=== PATIENT | female | born 1935 | race Caucasian/White ===

== ENCOUNTER 2020-09-18 17:09 | Inpatient (IN) | payer MEDICARE, SELFPAY ==
--- NOTE | ~2020-09-18 | CT_ITS ---
EXAMINATION: CT cervical spine wo con DATE: 09/18/2020 17:38 INDICATION: Fall. Neck pain. TECHNIQUE: Computed tomography (CT) of the cervical spine was performed without intravenous contrast. Automated exposure control and iterative reconstruction technique were employed. Exam dose: 84.72 m Gy-cm total exam DLP. COMPARISON: None FINDINGS: There is diffuse osteopenia. C1 and C2 are normally aligned and the odontoid process is intact. There is moderately severe degenerative disc disease at C4-5 and C5-6 and moderate degenerative disc disease at C6-7. No fracture or dislocation or locked facet. There is degenerative change at the apophyseal joints. Un covertebral joint spurring is noted throughout the cervical spine.. IMPRESSION: Extensive degenerative changes; no fracture or dislocation Reviewed, dictated and finalized at [facility]. Reviewed, dictated and finalized at location A.
--- NOTE | ~2020-09-18 | XR_ITS ---
XR chest 1V portable DATE: 09/18/2020 19:55 INDICATION: Fall. Hip fracture. TECHNIQUE: Portable supine AP chest on 09/18/2020 at 1955 hours COMPARISON: None FINDINGS: Cardiomegaly. Aortic calcification. No pulmonary infiltrate or consolidation or pleural effusion. Mild bilateral apical capping. Diffuse osteopenia. IMPRESSION: Cardiomegaly and aortic atherosclerosis Diffuse osteopenia Reviewed, dictated and finalized at location A.
--- NOTE | ~2020-09-18 | XR_ITS ---
. EXAMINATION: XR surgery orthopedic DATE: 09/19/2020 08:56 INDICATION: ORIF right hip fracture. TECHNIQUE: 4 fluoroscopic images of the right hip were obtained during procedure performed by Dr. Tan varela. Radiologist was not present for the imaging or procedure. The amount of fluoroscopy time used d uring this procedure was 2.3 minutes. COMPARISON: 09/18/2020 FINDINGS: Interval open reduction and internal fixation of the intratrochanteric fracture of the proximal right femur with antegrade intramedullary crystal, distal interlocking screw and a pair of the neck dynamic co mpression screws. Alignment post fixation appears near-anatomic. Mild nonuniform joint space narrowin g at the superolateral aspect of the right hip joint space. IMPRESSION: 1. Near-anatomic alignment post open reduction and internal fixation of a intertrochanteric fracture of the proximal right femur. Reviewed, dictated and finalized at location A. IMPRESSION: 1. Near-anatomic alignment post open reduction and internal fixation of a inter trochanteric fracture of the proximal right femur.
--- NOTE | ~2020-09-18 | XR_ITS ---
XR hip RT 2V w AP pelvis DATE: 09/18/2020 17:50 INDICATION: Fall. Right hip pain, rotation TECHNIQUE: AP pelvis. AP and crosstable lateral views of right hip COMPARISON: None FINDINGS: There is a right intertrochanteric hip fracture with varus angulation. Diffuse osteopenia. The pubic symphysis and sacroiliac joints are intact. No pelvic fracture or bone destruction is evide nt. IMPRESSION: Right intertrochanteric hip fracture Diffuse osteopenia Reviewed, dictated and finalized at location A.
--- NOTE | ~2020-09-18 | CT_ITS ---
EXAMINATION: CT brain wo con DATE: 09/18/2020 17:38 INDICATION: Fall. Confusion. Neck pain. TECHNIQUE: Computed tomography (CT) of the head was performed without intravenous contrast. The mA wa s adjusted according to patient size. Iterative reconstruction technique was employed. Exam dose: 60 5.33 mGy-cm total exam DLP. COMPARISON: None FINDINGS: The examination is limited by motion artifact. No intracranial mass lesion or hemorrhage or cerebrovascular accident is evident. There is cerebral atherosclerosis. There is nonspecific diminished attenuation cerebral white matter, likely due to chronic small vessel ischemic changes. Central and cortical cerebral and cerebellar atrophy. No intracranial mass lesion or hemorrhage or cerebrovascular accident is evident. No midline shift or mass effect effect. No subdural or epidural hematoma. No fracture or bone destruction of the cranial vault. There is a small mucus retention cyst or polyp of the posterior left maxillary sinus. The mastoid air cells and included paranasal sinuses are otherwise well-developed and aerated. IMPRESSION: Cerebral atherosclerosis and chronic small vessel ischemic changes of the cerebral white matter Central and cortical cerebral and cerebellar atrophy No acute intracranial finding or skull fracture Reviewed, dictated and finalized at [facility]. Reviewed, dictated and finalized at location A.
[2020-09-18 17:02] VITALS: BP 164/88; PULSE 60; RESP 14; TEMP 36.9; O2SAT 98
--- NOTE | 2020-09-18 17:17 | ED.GENADULT ---
HPI - General Adult General Chief complaint: Fall <JACKIE Lu Last Filed: 09/18/20 19:26> Stated complaint: FALL-R HIP PAIN <JACKIE Lu Last Filed: 09/18/20 19:26> Time Seen by Provider: 09/18/20 17:12 <JACKIE Lu Last Filed: 09/18/20 19:26> Source: patient, EMS and RN notes reviewed <JACKIE Lu Last Filed: 09/18/20 19:26> Mode of arrival: EMS <JACKIE Lu Last Filed: 09/18/20 19:26> Limitations: dementia <JACKIE Lu Last Filed: 09/18/20 19:26> History of Present Illness HPI narrative: Patient is an 85-year-old female who [facility] for [facility] of hip injury secondary to fall patient has been in the [facility] for 3 days is a DNR comfort measures only presents with right hip pain deformity patient is alert and oriented to self patient notes hip pain denies other complaints or injuries at this time does not appear distressed or uncomfortable. Patient had had recent hospitalization at outside hospital for hypoglycemia was also having arrhythmia and was started on metoprolol which is a new medication for her. Patient's son is present <JACKIE Lu Last Filed: 09/18/20 19:26> Related Data Home medications: Home Medications Medication Instructions Recorded Confirmed calcium carbonate-vitamin D3 1 tablet PO DAILY 09/18/20 09/18/20 [Calcium 500 + D] metoprolol succinate 25 mg PO DAILY 09/18/20 09/18/20 multivitamin with minerals 1 tablet PO DAILY 09/18/20 09/18/20 [Multiple Vitamin-Minerals] timolol maleate 1 drp EACH EYE Q12H 09/18/20 09/18/20 <JACKIE Lu Last Filed: 09/18/20 19:26> Allergies/adverse reactions: Allergies Allergy/AdvReac Type Severity Reaction Status Date / Time No Known Allergies Allergy Verified 09/18/20 20:43 <JACKIE Lu Last Filed: 09/18/20 19:26> Review of Systems Review of Systems: ROS unobtainable: Yes unobtainable due to medical condition <Gordy Regan PA-C - Last Filed: 09/18/20 19:26> [facility] Past Medical History Medical History: Medical History Breast CA Congestive heart failure Dementia Glaucoma Hypertension <Gordy Regan PA-C - Last Filed: 09/18/20 19:26> Surgical History Surgical History: Surgical History Surgical history unknown <Gordy Regan PA-C - Last Filed: 09/18/20 19:26> Family History Family History: Family History Son Heart disease 2 sons with early-onset coronary artery disease in their early 50s. Mother Hypertension <Gordy Regan PA-C - Last Filed: 09/18/20 19:26> Social History Social History: Social History Social History: The patient is originally from [place], [place] but is now at [place] as per [facility]. 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 No alcohol, tobacco, or drug use. Her healthcare power of insurance attorney is Sarath Mathew. She is listed as a do not resuscitate. Smoking status: Never smoker Alcohol intake: never Substance use: never Spiritual care concerns: No <JACKIE Lu Last Filed: 09/18/20 19:26> Exam Narrative: Exam Narrative: GENERAL: Well-appearing, well-nourished, and in no acute distress. HEAD: Normocephalic, atraumatic. EYES: PERRLA and EOMI. ENT: Nares clear, no rhinorrhea or epistaxis. Mucous membranes moist. NECK: Supple. No adenopathy or masses. CHEST: Clear to auscultation. No respiratory distress. No wheezes rales or rhonchi HEART: Regular rate and rhythm. No murmur heard. Normal peripheral pulses. ABDOMEN: Soft, nontender, nondistended EXTREMITIES: Normal range of motion. No edema. SKIN: Warm, dry, no rash. NEUR
[2020-09-18 18:26] LABS: Hematocrit 35.6 % (37.0-47.0); Hemoglobin 11.5 g/dL (12.0-15.0); Immature Platelet Fraction Pct 9.2 % (0.9-11.2); Mean Corpuscular HGB Conc 32.3 g/dl (32-36); Red Blood Count 3.49 M/mm3 (4.2-5.4); White Blood Count 11.7 K/mm3 (4.5-10.0)
[2020-09-18 18:29] LABS: Add Urine Microscopic? YES; Appearance Urine Cloudy (Clear); Bilirubin Urine Negative (Negative); Blood Urine Negative (Negative); Color Urine Yellow (Yellow); Glucose Urine UA Negative (Negative); Ketones Urine Negative (Negative); Leukocyte Esterase Ur Negative LEU/UL (Negative); Mucus Urine Rare /lpf; Nitrate Urine Negative (Negative); Protein Urine 1+ mg/dL (Negative); Squamous Epithelial Cell Urine Rare /hpf (Few); Urobilinogen Urine Negative mg/dL (<2.0); WBC Urine 0-3 /hpf
[2020-09-18 18:37] LABS: Anion Gap 1 mmol/L (8-16); Blood Urea Nitrogen 20 mg/dL (7-17); Carbon Dioxide 33 mmol/L (22-30); Chloride 106 mmol/L (98-107); Estimated CRCL calculation 43 ml/min; Estimated Glomerular Filt Rate > 60; Glucose 118 mg/dL (65-105); Potassium 4.5 mmol/L (3.4-5.0); Sodium 140 mmol/L (137-145)
[2020-09-18 18:52] LABS: Band Neutrophils Percent 2 % (0-6); Lymphocytes Absolute Manual 2.45 K/mm3 (1.1-4.5); Monocytes Absolute Manual 0.46 K/mm3 (0.1-0.90); Monocytes Percent Manual 4 % (3-9); Neutrophils Absolute Manual 8.77 K/mm3 (1.7-7.2); Neutrophils Percent Manual 73 % (46-73); Platelet Estimate Adequate (Adequate); Total Cells Counted 100
[2020-09-18] MEDS: SODIUM CHLORIDE 0.9% IV 500 ML 999 ML IV CONT (19:02)
[2020-09-18] MEDS: MORPHINE SULFATE (*CRX) 2 MG/ML INJ IV PUSH (19:02)
--- NOTE | 2020-09-18 19:20 | PC.NURSE ---
assuming care of pt at this time, received report from [facility]
--- NOTE | 2020-09-18 19:24 | PM.CNOR ---
Assessment and Plan Additional Plan This is a an 85-year-old female who presented to the emergency room a little while ago with a displaced right intertrochanteric hip fracture. She recently took residence at [place] period 1 week ago she was at home but she was getting weaker and frail and her son moved her locally to be closer to him and placed her in [place] where she could be cared for. The last 2 days she has seemed very unsteady and normally she is supposed to use a walker but is stubborn and does have moderate dementia and is forgetful and she got up without her walker today and fell sustaining her right hip fracture. She had CT of the neck and brain as well. She has recently been started on metoprolol for intermittent tachycardia ranging from 80-130. Her laboratory studies show anemia hemoglobin 11.5 mild elevation of white count 11.7 increased MCV 102. Basic metabolic profile showed a creatinine of 0.6 BUN of 20. Urinalysis 0-3 white blood cells per high-power field. On exam she is alert. She communicates very clearly but she has significant memory loss. When I asked her how old she was she ponder this for awhile and finally stated that she was 52. She hurts but can't state where her pain is even when her son ask served but if she is asked if her right hip hurts she says yes. There is no swelling or ecchymosis in the right lower extremity. She does wiggle her toes on command. She had a 1+ posterior tibial artery pulse palpable. I could not feel dorsalis pedis pulse. There was no significant lower extremity edema the calf was nontender. She was able to lift her head off the gurney so I could put a pillow under and denied pain with motion of her head and neck. Impression this patient has a displaced right intertrochanteric hip fracture. She has been ambulatory. I have discussed with her my recommendation to proceed with surgical repair of her hip fracture and she was in agreement. I discussed at length the risks of surgery with her son and we talked about the risk of mortality in someone her age that has dementia that has been going through a significant decline and the risk of mortality in the next 30 days in the next 90 days is significant. However he is hopeful that her condition will improve with further medical treatment which is certainly possible as she was doing much better just 1 week ago. He would like to give her the best chance of having optimal function and optimal quality of life in her remaining years. I have discussed the option of nonsurgical treatment which has a higher short-term and long-term mortality compared with surgical treatment of this fracture and would not generally be appropriate for someone who is ambulatory and interacts with her loved ones has no terminal illness. We will plan to use a trochanteric nail device to repair the fracture. She has no known drug allergies. She does have anemia and she is at some risk for needing transfusion postoperatively. I spoke with Rosie the nurse practitioner at length and Leidysaad is going to request some of her records and we will possibly discuss the case with Dr. reyna to see if any additional cardiac workup is necessary before proceeding. History of Present Illness HPI Consult date: 09/18/20 Chief complaint: FALL-R HIP PAIN PMFSH Past Medical History Medical History (Updated 09/18/20 @ 19:26 by Gordy Regan PA-C) Dementia Social History Social History (Updated 09/18/20 @ 17:18 by Gordy Regan PA-C) Smoking status: Never smoker Living arrangements: prison Gender identity (if verbalized by the patient): Female Meds Home Medications and Allergies Home Medications Medication Instructions Recorded Confirmed Type calcium carbonate-vitamin D3 1 tablet PO DAILY 09/18/20 History [Calcium 500 With D] metoprolol succinate 25 mg PO DAILY 09/18/20 History multivitamin with minerals 1 tablet PO DAILY 09/18/20 History [Mu
--- NOTE | 2020-09-18 19:30 | PM.IMHP ---
H&P: HPI History of Present Illness Date/Time: 09/18/20 19:30 Chief Complaint: Hip pain after fall. Narrative: This is an 85-year-old female with dementia and hypertension who presented to the emergency department earlier today via EMS from [place] for evaluation of hip pain after an unwitnessed fall. Given her dementia she is not able to provide much in the way of history and as such a majority of the following is obtained via a review of her electronic medical records and discussions with her son. Her dementia has rapidly progressed and in fact she moved from her home in [place], [place] to [place] just 3 days ago. Not long prior to arrival she was found on the floor and was complaining of right hip pain. Imaging in the emergency department demonstrated an intratrochanteric fracture and she is being admitted in this setting. She is very confused and does not remember how she fell. At the time my evaluation she has no complaints but seems quite anxious in this new setting. Of note, the patient was hospitalized at [facility] in [place], [place] several weeks ago with weakness and lower extremity edema. According to the son, she has ?an enlarged heart? and they started her on metoprolol for a possible arrhythmia however he is not certain if she had AFib or not. It sounds as though she was diuresed in the hospital and had improvement in her symptoms and edema. Review of Systems Review of Systems: Narrative: A complete review of systems was attempted but is extremely limited given her severe dementia. At this time she denies headache, dizziness, fever, chills, sweats, chest pain, pleuritic pain, shortness of breath, orthopnea, abdominal pain, nausea, vomiting, diarrhea, and dysuria. She is not having much in the way of hip pain except when she attempts to move her legs. [facility] Past Medical History Medical History (Updated 09/18/20 @ 21:25 by Rosie Prabhakar PA-C) Congestive heart failure Dementia Glaucoma Hypertension Surgical History Surgical History (Updated 09/18/20 @ 21:25 by Rosie Prabhakar PA-C) Surgical history unknown Family History Family History (Updated 09/18/20 @ 21:26 by Rosie Prabhakar PA-C) Son Heart disease 2 sons with early-onset coronary artery disease in their early 50s. Social History Social History (Updated 09/18/20 @ 21:26 by Rosie Prabhakar PA-C) Social History: The patient is originally from [place], [place] but is now at [place] as per [facility]. 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 No alcohol, tobacco, or drug use. Her healthcare power of transactional attorney is Sarath Mathew. She is listed as a do not resuscitate. Meds Home Medications and Allergies Home Medications Medication Instructions Recorded Confirmed Type calcium carbonate-vitamin D3 tablet 09/18/20 History [Calcium 500 + D] metoprolol succinate 25 mg PO DAILY 09/18/20 History multivitamin with minerals 1 tablet PO DAILY 09/18/20 History [Multiple Vitamin-Minerals] timolol maleate 1 drp EACH EYE Q12H 09/18/20 History Allergies Allergy/AdvReac Type Severity Reaction Status Date / Time No Known Allergies Allergy Verified 09/18/20 20:43 Vital Signs Vital Signs - 24 hr 09/18/20 17:02 09/18/20 19:42 09/18/20 20:02 Temperature 98.4 F Pulse Rate 60 67 88 Respiratory Rate 14 12 12 Blood Pressure 164/88 H 157/67 H 146/64 H Pulse Oximetry 98 99 99 Exam Narrative: Exam Narrative: General: Frail elderly female supine in bed in no acute distress although she appears somewhat anxious. Weight: 49 kilograms. BMI: 21.1. HEENT: Normocephalic, atraumatic. Pupils are 3 millimeters and are reactive. Extraocular motions appear to be intact. Sclerae anicteric. Oral mucosa appears moist. Oropharynx poorly visualized that she did not open her mouth very far. Neck: Supple. No JVD. Respiratory: Respirations are even and nonlabored. Lungs are clear to aus
--- NOTE | 2020-09-18 19:39 | PC.NURSE ---
this rn gave meridian update on pt.
--- NOTE | 2020-09-18 19:40 | ECG_ITS ---
Measurements Intervals [place] Rate: 62 P: 60 WV: 163 QRS: -50 QRSD: 102 T: 43 QT: 433 QTc: 441 Interpretive Statements SINUS RHYTHM LEFT ANTERIOR FASCICULAR BLOCK BASELINE ARTIFACT- I, II, III, AVR, AVL, AVF ABNORMAL ECG Electronically Signed On 09-19-2020 8:42:01 CDT by Bebeto Hogue D.O.
[2020-09-18 19:42] VITALS: BP 157/67; PULSE 67; RESP 12; O2SAT 99
[2020-09-18 19:58] LABS: Vitamin D 25 Hydroxy 17.3 ng/mL
[2020-09-18 20:00] VITALS: BP 131/89; PULSE 68; RESP 20; TEMP 36.9; O2SAT 99
[2020-09-18 20:02] VITALS: BP 146/64; PULSE 88; RESP 12; O2SAT 99
[2020-09-18 20:59] LABS: INR 1.1; Partial Thromboplastin Time 33.1 SECONDS (22.3-36.8); Prothrombin Time 14.3 Seconds (11.1-14.7)
[2020-09-18] MEDS: LACTATED RINGERS 1,000 ML 75 ML IV CONT (21:12)
[2020-09-18] MEDS: FAMOTIDINE 20 MG/2 ML VIAL IV PUSH (21:12)
[2020-09-18 21:22] VITALS: BMI 23.0
[2020-09-18 21:23] VITALS: BP 144/56; PULSE 66; RESP 18; TEMP 37.7; O2SAT 100
[2020-09-18 21:38] VITALS: PULSE 64; O2SAT 98
--- NOTE | 2020-09-18 21:38 | PC.NURSE ---
Addendum entered by Elzbieta Calero RN 09/18/20 21:44: Message left 09/18/20 at 2126 Original Note: Called and left message for son Sarath to call back regarding information to complete admission process and for consent for surgery and surgical blood transfusion.
[2020-09-18] MEDS: TIMOLOL MALEATE 0.25% OP SOLN 5 ML BOTTLE 1 DROP EACH EYE (22:01)
--- NOTE | 2020-09-18 22:47 | ADMGEN ---
This patient, Taylor Dickerson, was admitted to 2 Medical Room 244-01 09/18/20 @2009. Patient/family oriented to hospital policies and general routines including ID bracelet, bed and alarms, visiting hours, pain management, procedures, bathroom and other care routines, personal items, smoking policy, room service/diet, and visiting hours. Information on how to activate the Rapid Response Team has been discussed. Patient/Family are encouraged to report perceived risks to care and to ask questions if they do not understand what they are told or what they should do.
[2020-09-19] VITALS (19 sets, daily range): BP systolic 109–156; BP diastolic 49–93; PULSE 56–74; RESP 10–20; TEMP 36.3–37.2; O2SAT 93–100
[2020-09-19 05:21] LABS: Hematocrit 36.4 % (37.0-47.0); Hemoglobin 11.6 g/dL (12.0-15.0); Mean Corpuscular HGB Conc 31.9 g/dl (32-36); Mean Corpuscular Hemoglobin 32.7 pg (26-34); Mean Corpuscular Volume 102.5 fl (80-100); Mean Platelet Volume 11.2 fl (7.4-10.4); Platelet Count Result 141 k/mm3 (150-375); Red Blood Count 3.55 M/mm3 (4.2-5.4); Red Cell Distribution Width 14.1 % (11.5-14.5); White Blood Count 9.2 K/mm3 (4.5-10.0)
[2020-09-19 06:00] LABS: Alanine Aminotransferase 19 U/L (4-35); Albumin Level 3.3 g/dL (3.5-5.1); Alkaline Phosphatase 81 U/L (38-126); Anion Gap 5 mmol/L (8-16); Aspartate Amino Transferase 37 U/L (14-36); Bilirubin,Total 0.5 mg/dL (0.2-1.3); Blood Urea Nitrogen 18 mg/dL (7-17); Calcium 8.6 mg/dL (8.4-10.2); Carbon Dioxide 22 mmol/L (22-30); Chloride 108 mmol/L (98-107); Estimated CRCL calculation 50 ml/min; Estimated Glomerular Filt Rate > 60; Glucose 112 mg/dL (65-105); Magnesium 1.9 mg/dL (1.6-2.3); Potassium 4.9 mmol/L (3.4-5.0); Sodium 135 mmol/L (137-145)
--- NOTE | 2020-09-19 06:51 | WPDANESEPP ---
Anes - Eval Pre Procedure Procedure: Operation Date: 09/19/20 07:30 Proposed Procedures p Intertrochanteric Nail - Torres Richardson MD Date/Time: 09/19/20 06:51 Pre Op Diagnosis: hip fracture Patient Data Age: 85 Gender: F Height: 1.52 m Weight: 53.5 kg Last Vital Signs Temp 37.2 C 09/19/20 06:00 Pulse 74 09/19/20 06:00 Resp 20 09/19/20 06:00 BP 156/72 H 09/19/20 06:00 Pulse Ox 99 09/19/20 06:00 Allergies Allergy/AdvReac Type Severity Reaction Status Date / Time No Known Allergies Allergy Verified 09/18/20 20:43 Home Medications Medication Instructions Recorded Confirmed Type calcium carbonate-vitamin D3 1 tablet PO DAILY 09/18/20 09/18/20 History [Calcium 500 + D] metoprolol succinate 25 mg PO DAILY 09/18/20 09/18/20 History multivitamin with minerals 1 tablet PO DAILY 09/18/20 09/18/20 History [Multiple Vitamin-Minerals] timolol maleate 1 drp EACH EYE Q12H 09/18/20 09/18/20 History Laboratory Tests 09/18/20 09/18/20 09/18/20 18:19 18:19 18:19 WBC 11.7 K/mm3 H K/mm3 (4.5-10.0) RBC 3.49 M/mm3 L M/mm3 (4.2-5.4) Hgb 11.5 g/dL L g/dL (12.0-15.0) Hct 35.6 % L % (37.0-47.0) MCV 102.0 fl H fl (80-100) MCH 33.0 pg pg (26-34) MCHC 32.3 g/dl g/dl (32-36) RDW 14.0 % % (11.5-14.5) Plt Count TNP MPV TNP Immature Gran % (Auto) Not Reportable Neut % (Auto) Not Reportable Lymph % (Auto) Not Reportable [place] % (Auto) Not Reportable Eos % (Auto) Not Reportable Baso % (Auto) Not Reportable Lymph # (Auto) Not Reportable [place] # (Auto) Not Reportable Eos # (Auto) Not Reportable Baso # (Auto) Not Reportable Abs Immat Gran (auto) Not Reportable Absolute Neuts (auto) Not Reportable Absolute Nucleated RBC Not Reportable Total Counted 100 Neutrophils % (Manual) 73 % % (46-73) Band Neutrophils % 2 % % (0-6) Lymphocytes % (Manual) 21.0 % % (18-44) Monocytes % (Manual) 4 % % (3-9) Nucleated RBC % Not Reportable Abs Neuts (Manual) 8.77 K/mm3 H K/mm3 (1.7-7.2) Abs Lymphs (Manual) 2.45 K/mm3 K/mm3 (1.1-4.5) Abs Monocytes (Manual) 0.46 K/mm3 K/mm3 (0.1-0.90) Platelet Estimate Adequate (Adequate) % Immature Plt Fraction 9.2 % % (0.9-11.2) PT INR APTT Sodium 140 mmol/L mmol/L (137-145) Potassium 4.5 mmol/L mmol/L (3.4-5.0) Chloride 106 mmol/L mmol/L (98-107) Carbon Dioxide 33 mmol/L H mmol/L (22-30) Anion Gap 1 mmol/L L mmol/L (8-16) BUN 20 mg/dL H mg/dL (7-17) Creatinine 0.60 mg/dL L mg/dL (0.7-1.0) Estim Creat Clear Calc 43 ml/min ml/min Estimated GFR > 60 (59 - ) Glucose 118 mg/dL H mg/dL (65-105) Calcium 9.0 mg/dL mg/dL (8.4-10.2) Magnesium Total Bilirubin AST ALT Alkaline Phosphatase Total Protein Albumin Vitamin D 25-Hydroxy TSH (Reflex) Urine Color Yellow (Yellow) Urine Appearance Cloudy H (Clear) Urine pH 7.0 (5.0-9.0) Ur Specific [place] 1.020 (1.001-1.035) Urine Protein 1+ mg/dL H mg/dL (Negative) Urine Glucose (UA) Negative mg/dL mg/dL (Negative) Urine Ketones Negative mg/dL mg/dL (Negative) Ur Blood (Man) Negative (Negative) Urine Nitrate Negative (Negative) Urine Bilirubin Negative (Negative) Urine Urobilinogen Negative mg/dL mg/dL (<2.0) Leukocyte Esterase Rfl Negative NATIVIDAD/UL L
--- NOTE | 2020-09-19 07:26 | WPDHPUPDATE1 ---
History and Physical Update Update Date/Time: 09/19/20 07:26 History and Physical has been reviewed, including an updated exam of the patient. There are NO changes in the patient's condition. Risks, benefits, and alternatives have been discussed and questions answered. Patient agrees to proceed with procedure.
[2020-09-19] MEDS: LACTATED RINGERS 1,000 ML 30 ML IV CONT (07:30)
--- NOTE | 2020-09-19 07:30 | WPDANESEPPF ---
Anes - Initial Pre Proc Eval Procedure: Operation Date: 09/19/20 07:30 Proposed Procedures p Intertrochanteric Nail - Torres Richardson MD Date/Time: 09/19/20 07:30 Surgeon: Estella Rodríguez PA-C Pre Op Diagnosis: hip fracture Patient Data Age: 85 Gender: F Height: 5 ft Weight: 53.5 kg Last Vital Signs Temp 37.2 C 09/19/20 06:00 Pulse 74 09/19/20 06:00 Resp 20 09/19/20 06:00 BP 156/72 H 09/19/20 06:00 Pulse Ox 99 09/19/20 06:00 Allergies Allergy/AdvReac Type Severity Reaction Status Date / Time No Known Allergies Allergy Verified 09/18/20 20:43 Home Medications Medication Instructions Recorded Confirmed Type calcium carbonate-vitamin D3 1 tablet PO DAILY 09/18/20 09/18/20 History [Calcium 500 + D] metoprolol succinate 25 mg PO DAILY 09/18/20 09/18/20 History multivitamin with minerals 1 tablet PO DAILY 09/18/20 09/18/20 History [Multiple Vitamin-Minerals] timolol maleate 1 drp EACH EYE Q12H 09/18/20 09/18/20 History Laboratory Tests 09/18/20 09/18/20 09/18/20 18:19 18:19 18:19 WBC 11.7 K/mm3 H K/mm3 (4.5-10.0) RBC 3.49 M/mm3 L M/mm3 (4.2-5.4) Hgb 11.5 g/dL L g/dL (12.0-15.0) Hct 35.6 % L % (37.0-47.0) MCV 102.0 fl H fl (80-100) MCH 33.0 pg pg (26-34) MCHC 32.3 g/dl g/dl (32-36) RDW 14.0 % % (11.5-14.5) Plt Count TNP MPV TNP Immature Gran % (Auto) Not Reportable Neut % (Auto) Not Reportable Lymph % (Auto) Not Reportable [place] % (Auto) Not Reportable Eos % (Auto) Not Reportable Baso % (Auto) Not Reportable Lymph # (Auto) Not Reportable [place] # (Auto) Not Reportable Eos # (Auto) Not Reportable Baso # (Auto) Not Reportable Abs Immat Gran (auto) Not Reportable Absolute Neuts (auto) Not Reportable Absolute Nucleated RBC Not Reportable Total Counted 100 Neutrophils % (Manual) 73 % % (46-73) Band Neutrophils % 2 % % (0-6) Lymphocytes % (Manual) 21.0 % % (18-44) Monocytes % (Manual) 4 % % (3-9) Nucleated RBC % Not Reportable Abs Neuts (Manual) 8.77 K/mm3 H K/mm3 (1.7-7.2) Abs Lymphs (Manual) 2.45 K/mm3 K/mm3 (1.1-4.5) Abs Monocytes (Manual) 0.46 K/mm3 K/mm3 (0.1-0.90) Platelet Estimate Adequate (Adequate) % Immature Plt Fraction 9.2 % % (0.9-11.2) PT INR APTT Sodium 140 mmol/L mmol/L (137-145) Potassium 4.5 mmol/L mmol/L (3.4-5.0) Chloride 106 mmol/L mmol/L (98-107) Carbon Dioxide 33 mmol/L H mmol/L (22-30) Anion Gap 1 mmol/L L mmol/L (8-16) BUN 20 mg/dL H mg/dL (7-17) Creatinine 0.60 mg/dL L mg/dL (0.7-1.0) Estim Creat Clear Calc 43 ml/min ml/min Estimated GFR > 60 (59 - ) Glucose 118 mg/dL H mg/dL (65-105) Calcium 9.0 mg/dL mg/dL (8.4-10.2) Magnesium Total Bilirubin AST ALT Alkaline Phosphatase Total Protein Albumin Vitamin B12 Vitamin D 25-Hydroxy Folate TSH (Reflex) Urine Color Yellow (Yellow) Urine Appearance Cloudy H (Clear) Urine pH 7.0 (5.0-9.0) Ur Specific [place] 1.020 (1.001-1.035) Urine Protein 1+ mg/dL H mg/dL (Negative) Urine Glucose (UA) Negative mg/dL mg/dL (Negative) Urine Ketones Negative mg/dL mg/dL (Negative) Ur Blood (Man) Negative (Negative) Urine Nitrate Negative (Negative) Urine Bilirubin Negative (Negative) Urine Urobilinogen
[2020-09-19] MEDS: ceFAZolin 2 GM/D5W 50 ML 2 GM/50 ML BAG IVPB (07:49)
[2020-09-19] MEDS: TRANEXAMIC ACID 1,000MG/ISO100 1,000 MG/100 ML BAG 200 MG IVPB (07:52)
[2020-09-19 08:18] LABS: Folic Acid 8.3 ng/mL (2.76->20)
[2020-09-19] MEDS: ceFAZolin SODIUM 1 GM VIAL IRRIGATION (08:38)
--- NOTE | 2020-09-19 09:04 | P.OP_ITS ---
Procedure Note - Detailed Date of procedure: 09/19/20 Pre-op diagnosis: hip fracture Right intertrochanteric hip fracture Post-op diagnosis: same Procedure performed: Open reduction internal fixation right intertrochanteric hip fracture with Affixes trochanteric nail device Description of procedure: Patient was brought to the operating room and general anesthesia was administered. The right hip and thigh was scrubbed with the Bronson prep chlorhexidine cloth. The patient was transferred to the fracture table the right foot and ankle wrapped with soft roll and Coban and she was placed in the traction foot boot and the left hip abducted and flexed out of the way. Longitudinal traction was applied and the hip was placed at neutral rotation and intraoperative x-ray with fluoro showed confucianist of essentially anatomic alignment basically a 2 part fracture. She received 2 g of Ancef 750 mg of vancomycin preoperatively and 1 g of tranexamic acid in the right hip was prepped and draped usual fashion. A 1/2 inch longitudinal incision was made proximal to greater trochanter and a guide pin inserted through the fascia into the tip of the trochanter down the canal and its proper positioning confirmed with fluoro. A 9 mm starter Reamer was used to make the entrance hole at the tip greater trochanter and the long guide crystal inserted down the canal without difficulty. The canal was reamed to 13 mm when there is a little bit of chatter proximal femur reamed to 16 mm and the 11 mm diameter 125 degree Affixus nail was inserted under manual pressure to the appropriate depth. A 1-1/4 inch incision was made over the mid lateral thigh and a guide pin inserted into the low center femoral neck this was reamed and an 85 mm sliding hip screw was inserted to about 8 mm from subchondral bone in this obtained adequate purchase. The 65 mm anti rotation screw was then placed with proper positioning of the screws seen under fluoro in the AP and lateral views. A distal interlocking screw was placed in the static mode without difficulty. The wounds were thoroughly irrigated with antibiotic solution. The wounds were closed with 0 Vicryl to O Vicryl and skin glue EBL was 100 cc. She received 250 cc of IV fluids during the operation from anesthesia in addition to the 250 cc that the vancomycin came and her urine output was 200 cc and her blood pressure was fine during the procedure. There were no known complications. She was transferred postop recovery room stable condition. Implants: Biomet Anesthesia: GLMA Surgeon: Torres Richardson MD Materials And Corrosion Engineer: [facility] Estimated blood loss (mL): 100 IV fluids (mL): 500 Urine output (mL): 200 Drains: No Packing: No Pathology: none sent Complications: No immediate complications Condition: stable Disposition: PACU
[2020-09-19] MEDS: fentaNYL CITRATE INJ (*CRX) 100 MCG/2 ML VIAL 25 MCG IV PUSH (09:40)
--- NOTE | 2020-09-19 09:46 | SUR.PHASEI ---
CORRECTION; DISREGARD PAIN RELIEF MEASURES FROM 15 (IONTOPHERESIS, SENSORY BLOCK).
--- NOTE | 2020-09-19 10:45 | PC.NURSE ---
Returned from OR per Bed. Report received from Heidy MEHTA.
[2020-09-19] MEDS: KCL 20 MEQ/D5/0.45% SOD CHL 1,000 ML 80 ML IV CONT (11:28)
--- NOTE | 2020-09-19 11:53 | PC.NURSE ---
Estella TRIANA on floor reprots to hold metoprolol at this time, D/C plain dextrose fluids, and change vitamin D to weekly.
--- NOTE | 2020-09-19 11:55 | PM.IMPN ---
Progress Note: A&P Assessment and Plan (1) Closed intertrochanteric fracture of right femur: Code(s): S72.141A - Displaced intertrochanteric fracture of right femur, initial encounter for closed fracture Status: Acute Assessment and Plan: Sustained in a unwitnessed fall prior to arrival at her SNF facility. Patient's son states she had been complaining of some dizziness when he talked to her prior to her fall and believe she may have not been using her walker since this is new. Initial labs, urine and chest x-ray showed no signs of an infection She underwent ORIF of her right intertrochanteric hip fracture with Affixes trochanteric nail device by Dr. Richardson 09/19/20 Today. She is pretty comfortable at the time my evaluation. Per Ortho-DVT prophylaxis, PT/OT recommendations, discharge planning, follow-up Continue monitoring the patient's symptoms. Appreciate orthopedic input. (2) Unwitnessed fall: Code(s): R29.6 - Repeated falls Status: Acute Assessment and Plan: The patient does not recall how she fell today. Initiate fall precautions. No other injuries aside from the right hip fracture. May consider checking orthostatics or having Chaitanya hose placed Continue PT/OT per ortho recommendations (3) Hypertension: Code(s): I10 - Essential (primary) hypertension Status: Acute Assessment and Plan: Patient's blood pressure this morning was 156/72. Slightly elevated this morning. Continue her home medications as prescribed after surgery. Continue monitoring. (4) Dementia: Code(s): F03.90 - Unspecified dementia without behavioral disturbance Status: Chronic Assessment and Plan: Rapidly progressive dementia over the last several months. Initiate fall precautions. (5) Glaucoma: Code(s): H40.9 - Unspecified glaucoma Status: Acute Assessment and Plan: Continue eyedrops. (6) Congestive heart failure: Code(s): I50.9 - Heart failure, unspecified Status: Acute Assessment and Plan: Clinically compensated at this time. Continue metoprolol. Records requested from [facility] in [place] for review of workup done within the last several weeks. Monitor volume status closely with I/O and daily weights. Avoid over-hydration. Time Spent With Patient Time with patient: 25 - 35 minutes Subjective Date/time seen: 09/19/20 11:55 Interval history: Date of Service 09/19/20: The patient is drowsy from anesthesia and surgery. Patient is also very hard of hearing and has dementia so history is unable be obtained at this time. Patient's son is at bedside who states she was recently at [facility] in [place], [place] after she was found to be unresponsive in her home. She was sent to the hospital and they found her glucose to be low. They had to give her IV dextrose 10% in over a few days the patient became more responsive, alert and oriented to her baseline, per son. The patient had also been started on metoprolol while she was hospitalized due to fluctuations in her heart rate. He stated before she fell prior to arrival, she had complained to him that she was having some dizziness. He wonders if the dizziness is from the metoprolol which he has experience with his beta-ginger. Otherwise the patient had been doing well at [facility] prior to her fall which brought her into the emergency room. He stated in the emergency room she was at her baseline from his perspective. He also believe she could have fallen because of not being used to using a walker prior to her recent hospitalization otherwise being independent and living on her own. Review of Systems Review of Sy
[2020-09-19] MEDS: TIMOLOL MALEATE 0.25% OP SOLN 5 ML BOTTLE 1 DROP EACH EYE ×2 (12:32→20:41)
--- NOTE | 2020-09-19 14:44 | PC.NURSE ---
Security Intelligence Analyst called and spoke with Dr. Richardson regarding clarification on ergocalciferol and MD does want does to be changed to weekly.
[2020-09-19] MEDS: DOCUSATE SODIUM 100 MG CAPSULE PO (17:21)
[2020-09-19] MEDS: SENNA/DOCUSATE SODIUM TABLET 1 TAB PO (17:21)
[2020-09-19] MEDS: CYANOCOBALAMIN INJ 1,000 MCG/ML VIAL 1000 MCG IM (17:22)
[2020-09-20] VITALS (10 sets, daily range): BP systolic 105–132; BP diastolic 46–57; PULSE 58–88; RESP 14–16; TEMP 36.6–37.1; O2SAT 98–100; BMI 23.5
[2020-09-20] MEDS: KCL 20 MEQ/D5/0.45% SOD CHL 1,000 ML 80 ML IV CONT (01:19)
[2020-09-20 05:47] LABS: Basophils Percent Auto 0.3 % (0.2-1.2); Eosinophils Percent Auto 0.2 % (0-4.4); Hematocrit 27.7 % (37.0-47.0); Hemoglobin 8.9 g/dL (12.0-15.0); Immature Granulocyte Absolute 0.06 K/mm3 (0.00-0.031); Immature Granulocyte Percent A 0.6 % (0-0.5); Lymphocytes Absolute Auto 2.19 K/mm3 (0.9-3.2); Lymphocytes Percent Auto 20.2 % (18.3-44.2); Mean Corpuscular HGB Conc 32.1 g/dl (32-36); Mean Corpuscular Hemoglobin 32.8 pg (26-34); Mean Corpuscular Volume 102.2 fl (80-100); Mean Platelet Volume 10.3 fl (7.4-10.4); Monocytes Absolute Auto 0.9 K/mm3 (0.1-0.6); Monocytes Percent Auto 7.9 % (2.6-8.5); Neutrophils Absolute Auto 7.7 K/mm3 (1.3-6.7); Neutrophils Percent Auto 70.8 % (45.5-73.1); Platelet Count Result 222 k/mm3 (150-375); Red Blood Count 2.71 M/mm3 (4.2-5.4); Red Cell Distribution Width 14.1 % (11.5-14.5); White Blood Count 10.8 K/mm3 (4.5-10.0)
[2020-09-20 06:10] LABS: Anion Gap 3 mmol/L (8-16); Blood Urea Nitrogen 9 mg/dL (7-17); Calcium 8.6 mg/dL (8.4-10.2); Carbon Dioxide 27 mmol/L (22-30); Chloride 109 mmol/L (98-107); Estimated CRCL calculation 50 ml/min; Estimated Glomerular Filt Rate > 60; Glucose 115 mg/dL (65-105); Potassium 4.1 mmol/L (3.4-5.0); Sodium 139 mmol/L (137-145)
--- NOTE | 2020-09-20 07:44 | WPDANESPN ---
Anes - Prog Note Post-Op Date/Time: 09/20/20 07:44 Cardiovascular status: normal Respiratory status: normal Airway patency: baseline Mental status: other (AxO x 2) Post-Op hydration status: normal Vital Signs: Last Vital Signs Temp 36.9 C 09/20/20 04:00 Pulse 62 09/20/20 04:00 Resp 16 09/20/20 04:00 BP 128/57 L 09/20/20 04:00 Pulse Ox 99 09/20/20 04:00 Pain Score (VAS): 2 I/O: Intake & Output 09/19/20 09/19/20 09/20/20 15:59 23:59 07:59 Intake Total 645 1280 240 Output Total 250 1000 1100 Balance 395 280 -860 Laboratory Tests 09/20/20 05:07 09/20/20 05:07 09/19/20 09/20/20 09/20/20 05:00 05:07 05:07 WBC 10.8 H RBC 2.71 L Hgb 8.9 L Hct 27.7 L MCV 102.2 H MCH 32.8 MCHC 32.1 RDW 14.1 Plt Count 222 D MPV 10.3 Immature Gran % (Auto) 0.6 H Neut % (Auto) 70.8 Lymph % (Auto) 20.2 [place] % (Auto) 7.9 Eos % (Auto) 0.2 Baso % (Auto) 0.3 Lymph # (Auto) 2.19 [place] # (Auto) 0.9 H Eos # (Auto) 0.0 Baso # (Auto) 0.0 Abs Immat Gran (auto) 0.06 H Absolute Neuts (auto) 7.7 H Absolute Nucleated RBC 0.0 Nucleated RBC % 0.0 Sodium 139 Potassium 4.1 Chloride 109 H Carbon Dioxide 27 Anion Gap 3 L BUN 9 D Creatinine 0.50 L Estim Creat Clear Calc 50 Estimated GFR > 60 Glucose 115 H Calcium 8.6 Vitamin B12 191.0 L Folate 8.3 Post-procedural complaints: none Patient Feedback: Patient satisfied with anesthetic care.
[2020-09-20] MEDS: SENNA/DOCUSATE SODIUM TABLET 1 TAB PO ×2 (08:36→17:23)
[2020-09-20] MEDS: THERAPEUTIC MULTIVITAMINS/MINERALS TAB (*BKC) 1 TABLET PO (08:36)
[2020-09-20] MEDS: ERGOCALCIFEROL 50,000 UNIT CAPSULE 50000 UNITS PO (08:36)
[2020-09-20] MEDS: TIMOLOL MALEATE 0.25% OP SOLN 5 ML BOTTLE 1 DROP EACH EYE ×2 (08:37→20:23)
[2020-09-20] MEDS: APIXABAN 2.5 MG TABLET PO ×2 (08:37→20:13)
[2020-09-20] MEDS: polyethylene glycoL 3350 17 GM POWD.PACK PO (08:37)
[2020-09-20] MEDS: CYANOCOBALAMIN INJ 1,000 MCG/ML VIAL 1000 MCG IM (08:42)
[2020-09-20] MEDS: DOCUSATE SODIUM 100 MG CAPSULE PO (08:42)
--- NOTE | 2020-09-20 10:47 | PM.IMPN ---
Progress Note: A&P Assessment and Plan (1) Closed intertrochanteric fracture of right femur: Code(s): S72.141A - Displaced intertrochanteric fracture of right femur, initial encounter for closed fracture Status: Acute Assessment and Plan: Sustained in a unwitnessed fall prior to arrival at her SNF facility. Patient's son states she had been complaining of some dizziness when he talked to her prior to her fall and believe she may have not been using her walker since this is new. Initial labs, urine and chest x-ray showed no signs of an infection She underwent ORIF of her right intertrochanteric hip fracture with Affixes trochanteric nail device by Dr. Richardson 09/19/20 (POD #1) She is pretty comfortable at the time my evaluation. Per Ortho-DVT prophylaxis, PT/OT recommendations, discharge planning, follow-up Continue monitoring the patient's symptoms. Appreciate orthopedic input. (2) Unwitnessed fall: Code(s): R29.6 - Repeated falls Status: Acute Assessment and Plan: The patient does not recall how she fell today. Initiate fall precautions. No other injuries aside from the right hip fracture. May consider checking orthostatics or having Chaitanya hose placed Continue PT/OT per ortho recommendations (3) Hypertension: Code(s): I10 - Essential (primary) hypertension Status: Acute Assessment and Plan: Patient's blood pressure this morning was 128/57, stable Continue her home medications as prescribed after surgery. Continue monitoring. (4) Dementia: Code(s): F03.90 - Unspecified dementia without behavioral disturbance Status: Chronic Assessment and Plan: Rapidly progressive dementia over the last several months. Initiate fall precautions. (5) Glaucoma: Code(s): H40.9 - Unspecified glaucoma Status: Acute Assessment and Plan: Continue eyedrops. (6) Congestive heart failure: Code(s): I50.9 - Heart failure, unspecified Status: Acute Assessment and Plan: Clinically compensated at this time. Continue metoprolol. Records requested from [facility] in [place] for review of workup done within the last several weeks. Monitor volume status closely with I/O and daily weights. Avoid over-hydration. (7) Macrocytic anemia: Code(s): D53.9 - Nutritional anemia, unspecified Status: Acute Assessment and Plan: Found to have vitamin b12 deficiency. Could be the cause of anemia on arrival. Now patient is having post op anemia, most likely from surgery and blood loss during procedure. Plan to recheck H&H this afternoon. Continue PPI while hospitalized. Monitor CBC daily, transfuse as needed. No signs of active bleeding at this time. (8) Vitamin B12 deficiency: Code(s): E53.8 - Deficiency of other specified B group vitamins Status: Acute Assessment and Plan: Replenish with IM Cyanocobalamin while here for 3 doses. Then PO Cyanocobalamin 1000 mg PO daily as outpatient .Follow up with PCP (9) Vitamin D deficiency: Code(s): E55.9 - Vitamin D deficiency, unspecified Status: Acute Assessment and Plan: Will give Weekly Ergocalciferol 50,000 Units PO. Follow up with PCP outpatient. Time Spent With Patient Time with patient: 25 - 35 minutes Subjective Date/time seen: 09/20/20 10:47 Interval history: Date of Service 09/19/20: The patient is resting comfortably. Poor historian due to dementia. Dose not know where or why she is
--- NOTE | 2020-09-20 11:04 | PM.PNORT ---
Progress Note: A&P Additional Plan POD 1 alert confused, no c/o of pain , wds-dry,wiggles toes, has not been up PT yet, taking good PO, will stop IV fluids-pt has hx of CHF <KAMILAH New - Last Filed: 09/20/20 11:11> Subjective Subjective Date/Time Seen: 09/20/20 11:04 <KAMILAH New - Last Filed: 09/20/20 11:11> Objective Data Vital Signs Vital Signs: Vital Signs - 24 hr 09/19/20 11:30 09/19/20 12:00 09/19/20 12:30 Temperature 36.4 C L 36.4 C Pulse Rate 70 66 74 Respiratory Rate 16 16 Blood Pressure 142/70 H 128/60 Pulse Oximetry 96 98 09/19/20 14:00 09/19/20 14:45 09/19/20 16:00 Temperature 36.9 C Pulse Rate 73 60 Respiratory Rate 16 Blood Pressure 132/58 L Pulse Oximetry 98 96 09/19/20 17:30 09/19/20 20:00 09/19/20 22:17 Temperature 36.6 C 36.7 C Pulse Rate 66 64 Respiratory Rate 16 18 Blood Pressure 109/52 L 120/49 L Pulse Oximetry 100 99 99 09/20/20 00:00 09/20/20 04:00 09/20/20 07:59 Temperature 36.6 C 36.9 C Pulse Rate 58 L 58 L 72 Respiratory Rate 16 16 Blood Pressure 123/46 L 128/57 L Pulse Oximetry 99 99 09/20/20 10:00 Temperature 36.7 C Pulse Rate 61 Respiratory Rate 14 Blood Pressure 109/52 L Pulse Oximetry 98 <KAMILAH New - Last Filed: 09/20/20 11:11> Intake/Output Intake/Output: Intake & Output 09/17/20 09/18/20 09/19/20 09/20/20 23:59 23:59 23:59 23:59 Intake Total 77 2175 915 Output Total 1500 1100 Balance 77 675 -185 <KAMILAH New - Last Filed: 09/20/20 11:11> Meds/Results Medications: Active Medications Generic Name Dose Route Start Last Admin Trade Name Freq PRN Reason Stop Dose Admin Acetaminophen 650 mg 09/20/20 14:00 Acetaminophen 325 Mg Tablet PO Q6H [facility] Apixaban 2.5 mg 09/20/20 09:00 09/20/20 08:37 Apixaban 2.5 Mg Tablet PO 2.5 mg Q12HR [facility] Administration Calcium Carbonate 500 mg 09/19/20 09:00 09/20/20 08:36 Calcium/Vitamin D 500 Mg Tablet PO 500 mg DAILY [facility] Administration Cyanocobalamin 1,000 mcg 09/19/20 14:35 09/20/20 08:42 Cyanocobalamin Inj 1,000 Mcg/Ml Vial IM 1,000 mcg DAILY [facility] Administration Docusate Sodium 100 mg 09/19/20 17:00 09/20/20 08:42 Docusate Sodium 100 Mg Capsule PO 100 mg BID [facility] Administration Ergocalciferol 50,000 unit 09/20/20 09:00 09/20/20 08:36 Ergocalciferol 50,000 Unit Capsule PO 50,000 unit WEEKLY [facility] Administration Magnesium Hydroxide 30 ml 09/19/20 10:41 Magnesium Hydroxide Susp 30 Ml Udc PO BID PRN Constipation Metoprolol Succinate 25 mg 09/19/20 09:00 09/19/20 12:00 Metoprolol Succinate Ext Rel 25 Mg Tabcr PO Not Given DAILY [facility] Multivitamins/Calcium 1 tablet 09/19/20 09:00 09/20/20 08:36 Therapeutic Multivitamins/Minerals Tab (*Bkc) PO 1 tablet DAILY [facility] Administration Naloxone HCl 0.1 mg 09/19/20 10:41 Naloxone Hcl 0.4 Mg/Ml Vial IV PUSH Q2M PRN Opiate Reversal Oxycodone HCl 2.5 mg 09/20/20 06:00 09/20/20 07:38 Oxycodone Hcl (*Crx) 2.5 Mg Tab Ir PO Not Given Q8HR [facility] Oxycodone/Acetaminophen 0.5 tablet 09/18/20 19:27 Oxycodone/Acetaminophen (*Crx) 5-325 Mg Tablet PO Q4H PRN Pain Rated 7-10 Polyethylene Glycol 17 gm 09/20/20 09:00 09/20/20 08:37 Polyethylene Glycol 3350 17 Gm Powd.Pack PO 17 gm QAM [facility] Administration Senna/Docusate Sodium 1 tab 09/19/20 17:00 09/20/20 08:36 Senna/Docusate Sodium Tablet PO 1 tab BID [facility] Administration Timolol Maleate 1 drop 09/18/20 21:45 09/20/20 08:37 Timolol Maleate 0.25% Op Soln 5 Ml Bottle EACH EYE 1 drop Q12HR [facility] Administration <KAMILAH New - Last Filed: 09/20/20 11:11> Radiology Results: ITS Impressions Head CT 09/18/20 17:44 IMPRESSION: Cerebral atherosclerosis and chronic small vessel ischemic changes of the cerebral white matter Central and cortical cerebral and cerebellar a
[2020-09-20] MEDS: ACETAMINOPHEN 325 MG TABLET 650 MG PO ×2 (13:37→20:18)
[2020-09-20] MEDS: oxyCODONE HCL (*CRX) 2.5 MG TAB IR PO ×2 (13:37→22:19)
[2020-09-20 15:25] LABS: Hematocrit 28.6 % (37.0-47.0); Hemoglobin 9.3 g/dL (12.0-15.0)
[2020-09-20] MEDS: DOCUSATE SODIUM LIQ 100 MG/10 ML UDC PO (20:23)
[2020-09-21] VITALS (16 sets, daily range): BP systolic 95–118; BP diastolic 46–73; PULSE 51–148; RESP 12–18; TEMP 36.5–36.9; O2SAT 98–100
[2020-09-21] MEDS: ACETAMINOPHEN 325 MG TABLET 650 MG PO ×4 (02:16→19:51)
[2020-09-21 05:30] LABS: Hematocrit 25.9 % (37.0-47.0); Hemoglobin 8.4 g/dL (12.0-15.0); Mean Corpuscular HGB Conc 32.4 g/dl (32-36); Mean Corpuscular Hemoglobin 32.9 pg (26-34); Mean Corpuscular Volume 101.6 fl (80-100); Mean Platelet Volume 10.6 fl (7.4-10.4); Platelet Count Result 227 k/mm3 (150-375); Red Blood Count 2.55 M/mm3 (4.2-5.4); Red Cell Distribution Width 14.4 % (11.5-14.5); White Blood Count 9.6 K/mm3 (4.5-10.0)
[2020-09-21 05:59] LABS: Anion Gap 1 mmol/L (8-16); Blood Urea Nitrogen 15 mg/dL (7-17); Calcium 8.6 mg/dL (8.4-10.2); Carbon Dioxide 28 mmol/L (22-30); Chloride 107 mmol/L (98-107); Estimated CRCL calculation 50 ml/min; Estimated Glomerular Filt Rate > 60; Glucose 82 mg/dL (65-105); Potassium 3.6 mmol/L (3.4-5.0); Sodium 136 mmol/L (137-145)
--- NOTE | 2020-09-21 06:23 | PM.PNORT ---
Progress Note: A&P Additional Plan POD 2 alert avss, hgb-8.4 this am, acute anemia due to fx and surg. vital signs are good, will recheck CBC in am, wds-dry, working on getting pt to rehab facility <KAMILAH New - Last Filed: 09/21/20 06:25> Subjective Subjective Date/Time Seen: 09/21/20 06:23 <KAMILAH New - Last Filed: 09/21/20 06:25> Objective Data Vital Signs Vital Signs: Vital Signs - 24 hr 09/20/20 07:59 09/20/20 10:00 09/20/20 12:00 Temperature 36.7 C Pulse Rate 72 61 61 Respiratory Rate 14 Blood Pressure 109/52 L Pulse Oximetry 98 09/20/20 14:00 09/20/20 16:00 09/20/20 17:58 Temperature 36.8 C 37.1 C Pulse Rate 88 67 63 Respiratory Rate 14 14 Blood Pressure 132/57 L 119/52 L Pulse Oximetry 98 100 09/20/20 20:00 09/20/20 20:10 09/21/20 00:00 Temperature 36.9 C Pulse Rate 74 68 55 L Respiratory Rate 16 Blood Pressure 105/49 L Pulse Oximetry 98 09/21/20 00:07 09/21/20 04:00 09/21/20 04:28 Temperature 36.5 C 36.7 C Pulse Rate 62 63 60 Respiratory Rate 16 16 Blood Pressure 118/59 L 113/58 L Pulse Oximetry 98 99 <KAMILAH New - Last Filed: 09/21/20 06:25> Intake/Output Intake/Output: Intake & Output 09/18/20 09/19/20 09/20/20 09/21/20 23:59 23:59 23:59 23:59 Intake Total 77 2175 1485 400 Output Total 1500 1100 Balance 77 675 385 400 <KAMILAH New - Last Filed: 09/21/20 06:25> Meds/Results Medications: Active Medications Generic Name Dose Route Start Last Admin Trade Name Freq PRN Reason Stop Dose Admin Acetaminophen 650 mg 09/20/20 14:00 09/21/20 02:16 Acetaminophen 325 Mg Tablet PO 650 mg Q6H [facility] Administration Apixaban 2.5 mg 09/20/20 09:00 09/20/20 20:13 Apixaban 2.5 Mg Tablet PO 2.5 mg Q12HR [facility] Administration Calcium Carbonate 500 mg 09/19/20 09:00 09/20/20 08:36 Calcium/Vitamin D 500 Mg Tablet PO 500 mg DAILY [facility] Administration Cyanocobalamin 1,000 mcg 09/19/20 14:35 09/20/20 08:42 Cyanocobalamin Inj 1,000 Mcg/Ml Vial IM 1,000 mcg DAILY [facility] Administration Docusate Sodium 100 mg 09/20/20 21:00 09/20/20 20:23 Docusate Sodium Liq 100 Mg/10 Ml Udc PO 100 mg Q12HR [facility] Administration Ergocalciferol 50,000 unit 09/20/20 09:00 09/20/20 08:36 Ergocalciferol 50,000 Unit Capsule PO 50,000 unit WEEKLY [facility] Administration Magnesium Hydroxide 30 ml 09/19/20 10:41 Magnesium Hydroxide Susp 30 Ml Udc PO BID PRN Constipation Metoprolol Succinate 25 mg 09/19/20 09:00 09/19/20 12:00 Metoprolol Succinate Ext Rel 25 Mg Tabcr PO Not Given DAILY [facility] Multivitamins/Calcium 1 tablet 09/19/20 09:00 09/20/20 08:36 Therapeutic Multivitamins/Minerals Tab (*Bkc) PO 1 tablet DAILY [facility] Administration Naloxone HCl 0.1 mg 09/19/20 10:41 Naloxone Hcl 0.4 Mg/Ml Vial IV PUSH Q2M PRN Opiate Reversal Oxycodone HCl 2.5 mg 09/20/20 06:00 09/20/20 22:19 Oxycodone Hcl (*Crx) 2.5 Mg Tab Ir PO 2.5 mg Q8HR [facility] Administration Oxycodone/Acetaminophen 0.5 tablet 09/18/20 19:27 Oxycodone/Acetaminophen (*Crx) 5-325 Mg Tablet PO Q4H PRN Pain Rated 7-10 Polyethylene Glycol 17 gm 09/20/20 09:00 09/20/20 08:37 Polyethylene Glycol 3350 17 Gm Powd.Pack PO 17 gm QAM [facility] Administration Senna/Docusate Sodium 1 tab 09/19/20 17:00 09/20/20 17:23 Senna/Docusate Sodium Tablet PO 1 tab BID [facility] Administration Timolol Maleate 1 drop 09/18/20 21:45 09/20/20 20:23 Timolol Maleate 0.25% Op Soln 5 Ml Bottle EACH EYE 1 drop Q12HR [facility] Administration <KAMILAH New - Last Filed: 09/21/20 06:25> Radiology Results: ITS Impressions Head CT 09/18/20 17:44 IMPRESSION: Cerebral atherosclerosis and chronic small vessel ischemic changes of the cerebral white matter Central and cortical cerebral and cerebellar atrophy No acute intracranial finding or skull fr
[2020-09-21] MEDS: oxyCODONE HCL (*CRX) 2.5 MG TAB IR PO ×3 (06:43→21:08)
[2020-09-21] MEDS: SENNA/DOCUSATE SODIUM TABLET 1 TAB PO ×2 (08:59→16:50)
[2020-09-21] MEDS: THERAPEUTIC MULTIVITAMINS/MINERALS TAB (*BKC) 1 TABLET PO (09:00)
[2020-09-21] MEDS: APIXABAN 2.5 MG TABLET PO ×2 (09:00→21:08)
[2020-09-21] MEDS: TIMOLOL MALEATE 0.25% OP SOLN 5 ML BOTTLE 1 DROP EACH EYE ×2 (09:01→21:08)
[2020-09-21] MEDS: polyethylene glycoL 3350 17 GM POWD.PACK PO (09:01)
[2020-09-21] MEDS: DOCUSATE SODIUM LIQ 100 MG/10 ML UDC PO ×2 (09:01→21:08)
[2020-09-21] MEDS: CYANOCOBALAMIN INJ 1,000 MCG/ML VIAL 1000 MCG IM (09:09)
--- NOTE | 2020-09-21 11:54 | P.PNIM_ITS ---
Progress Note: A&P Assessment and Plan (1) Closed intertrochanteric fracture of right femur: Code(s): S72.141A - Displaced intertrochanteric fracture of right femur, initial encounter for closed fracture Status: Acute Assessment and Plan: S/p unwitnessed fall prior to arrival at her SNF facility. POD [address] Richardson. Initial labs, urine and chest x-ray showed no signs of an infection * Post op care, pain management, PT/OT, DVT ppx per Orthopedic Surgery * Continue monitoring * Appreciate orthopedic input. * Hopefully discharge in next 1-2 days if okay with Orthopedic Surgery. CC following for placement (2) Unwitnessed fall: Code(s): R29.6 - Repeated falls Status: Acute Assessment and Plan: The patient does not recall how she fell. No other injuries aside from the right hip fracture. * Continue fall precautions. * Continue PT/OT per ortho recommendations (3) Hypertension: Code(s): I10 - Essential (primary) hypertension Status: Acute Assessment and Plan: Most recent BP 110s sys; relatively stable * Continue her home medications as prescribed * Continue monitoring. (4) Dementia: Code(s): F03.90 - Unspecified dementia without behavioral disturbance Status: Chronic Assessment and Plan: Rapidly progressive dementia over the last several months. * Continue fall precautions. (5) Glaucoma: Code(s): H40.9 - Unspecified glaucoma Status: Acute Assessment and Plan: * Continue eyedrops. (6) Congestive heart failure: Code(s): I50.9 - Heart failure, unspecified Status: Acute Assessment and Plan: Clinically compensated at this time. Most recent Echo from [facility] shows normal EF with no mention of diastolic dysfunction. * Continue metoprolol. * Monitor volume status closely with I/O and daily weights (7) Macrocytic anemia: Code(s): D53.9 - Nutritional anemia, unspecified Status: Acute Assessment and Plan: Found to have vitamin b12 deficiency. Could be the cause of anemia on arrival. Now patient is having post op anemia, most likely from surgery and blood loss during procedure. No signs of active bleeding at this time. * Plan to recheck H&H tomorrow * Continue PPI while hospitalized. * transfuse as needed. * Continue Vit B12 supplementation (8) Vitamin B12 deficiency: Code(s): E53.8 - Deficiency of other specified B group vitamins Status: Acute Assessment and Plan: IM Cyanocobalamin x 3 doses earlier in stay * Continue with cyanocobalamin 1000 mg daily * Follow up with PCP (9) Vitamin D deficiency: Code(s): E55.9 - Vitamin D deficiency, unspecified Status: Acute Assessment and Plan: * Continue weekly Ergocalciferol 50,000 Units PO. * Follow up with PCP outpatient. Subjective Date/time seen: 09/21/20 11:54 Interval history: Patient is a pleasantly demented 85 yo F with history of HTN, CHF (recent echo at [facility] showed normal EF, no mention of diastolic dysfunction), suspected arrhythmia ( p
--- NOTE | 2020-09-21 11:54 | PM.IMPN ---
Progress Note: A&P Assessment and Plan (1) Closed intertrochanteric fracture of right femur: Code(s): S72.141A - Displaced intertrochanteric fracture of right femur, initial encounter for closed fracture Status: Acute Assessment and Plan: S/p unwitnessed fall prior to arrival at her SNF facility. POD [address] Richardson. Initial labs, urine and chest x-ray showed no signs of an infection Post op care, pain management, PT/OT, DVT ppx per Orthopedic Surgery Continue monitoring Appreciate orthopedic input. Hopefully discharge in next 1-2 days if okay with Orthopedic Surgery. CC following for placement (2) Unwitnessed fall: Code(s): R29.6 - Repeated falls Status: Acute Assessment and Plan: The patient does not recall how she fell. No other injuries aside from the right hip fracture. Continue fall precautions. Continue PT/OT per ortho recommendations (3) Hypertension: Code(s): I10 - Essential (primary) hypertension Status: Acute Assessment and Plan: Most recent BP 110s sys; relatively stable Continue her home medications as prescribed Continue monitoring. (4) Dementia: Code(s): F03.90 - Unspecified dementia without behavioral disturbance Status: Chronic Assessment and Plan: Rapidly progressive dementia over the last several months. Continue fall precautions. (5) Glaucoma: Code(s): H40.9 - Unspecified glaucoma Status: Acute Assessment and Plan: Continue eyedrops. (6) Congestive heart failure: Code(s): I50.9 - Heart failure, unspecified Status: Acute Assessment and Plan: Clinically compensated at this time. Most recent Echo from [facility] shows normal EF with no mention of diastolic dysfunction. Continue metoprolol. Monitor volume status closely with I/O and daily weights (7) Macrocytic anemia: Code(s): D53.9 - Nutritional anemia, unspecified Status: Acute Assessment and Plan: Found to have vitamin b12 deficiency. Could be the cause of anemia on arrival. Now patient is having post op anemia, most likely from surgery and blood loss during procedure. No signs of active bleeding at this time. Plan to recheck H&H tomorrow Continue PPI while hospitalized. transfuse as needed. Continue Vit B12 supplementation (8) Vitamin B12 deficiency: Code(s): E53.8 - Deficiency of other specified B group vitamins Status: Acute Assessment and Plan: IM Cyanocobalamin x 3 doses earlier in stay Continue with cyanocobalamin 1000 mg daily Follow up with PCP (9) Vitamin D deficiency: Code(s): E55.9 - Vitamin D deficiency, unspecified Status: Acute Assessment and Plan: Continue weekly Ergocalciferol 50,000 Units PO. Follow up with PCP outpatient. 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 Rcihardson. Patient is A&O to self and , but otherwise pleasantly confused. She does answer some ROS, but is a poor historian given her dementia. Upon questioning, she denies f/c/s, dizziness, lightheadedness, cp/palpitations, sob, n/v, abd pain, right hip pain. She has sensation in her right LE distal to surgic
[2020-09-21] MEDS: METOPROLOL TARTRATE 6.25 MG TABLET PO ×2 (12:42→21:23)
--- NOTE | 2020-09-21 12:42 | P.CDI_ITS ---
CDI Query Clarification Request - acute anemia due to fx and surg documented by Da Triana (doesn't specify type of anemia) - Now patient is having post op anemia, most likely from surgery and blood loss during procedure. documented by hospitalist (post op doesn't specify acuity) -09/18 H&H 11.5/35.6 4 H&H 8.4/25.9 Please further clarify type and acuity of anemia: * Acute blood loss anemia on chronic macrocytic anemia * Acute anemia of other cause * Other * Unable to determine
--- NOTE | 2020-09-21 12:42 | WPDCDIQUERY2 ---
CDI Query Clarification Request - acute anemia due to fx and surg documented by Da Triana (doesn't specify type of anemia) - Now patient is having post op anemia, most likely from surgery and blood loss during procedure. documented by hospitalist (post op doesn't specify acuity) -09/18 H&H 11.5/35.6 09/21 H&H 8.4/25.9 Please further clarify type and acuity of anemia: Acute blood loss anemia on chronic macrocytic anemia Acute anemia of other cause Other Unable to determine
--- NOTE | 2020-09-21 12:56 | PCOTNOTE ---
Attempted therapy session with patient, but patient refused, declining all ADLs, exercises and functional transfers.
--- NOTE | 2020-09-21 15:21 | PC.NURSE ---
On 09/21/20, the student, Akilah Austin, provided care and completed [facility] documentation on this patient. I have reviewed the student's documentation and agree with the findings.
--- NOTE | 2020-09-21 15:46 | PC.NURSE ---
Around 1130, pt HR was elevate in 130-140s. Hitesh Sadler called. While speaking with him on the phone her HR went back to 70s. He will come to evaluate the patient and give orders.
--- NOTE | 2020-09-21 21:41 | PC.NURSE ---
Metoprolol Tartrate would not scan. Pharmacy sent new one and still didn't work. Medication verified with Stanley Mclaughlin RN 09/21/2020 21:00.
[2020-09-22] VITALS (16 sets, daily range): BP systolic 96–127; BP diastolic 46–78; PULSE 56–133; RESP 14–18; TEMP 36.1–36.9; O2SAT 97–100
[2020-09-22] MEDS: ACETAMINOPHEN 325 MG TABLET 650 MG PO ×4 (01:39→19:49)
[2020-09-22 05:55] LABS: Anion Gap 0 mmol/L (8-16); Basophils Absolute Auto 0.1 K/mm3 (0.0-0.1); Basophils Percent Auto 0.8 % (0.2-1.2); Blood Urea Nitrogen 14 mg/dL (7-17); Carbon Dioxide 28 mmol/L (22-30); Chloride 109 mmol/L (98-107); Eosinophils Absolute Auto 0.4 K/mm3 (0-0.3); Eosinophils Percent Auto 5.2 % (0-4.4); Estimated CRCL calculation 43 ml/min; Estimated Glomerular Filt Rate > 60; Glucose 92 mg/dL (65-105); Hematocrit 23.9 % (37.0-47.0); Hemoglobin 7.5 g/dL (12.0-15.0); Immature Granulocyte Absolute 0.09 K/mm3 (0.00-0.031); Immature Granulocyte Percent A 1.2 % (0-0.5); Lymphocytes Absolute Auto 2.47 K/mm3 (0.9-3.2); Lymphocytes Percent Auto 33.8 % (18.3-44.2); Mean Corpuscular HGB Conc 31.4 g/dl (32-36); Mean Corpuscular Hemoglobin 31.8 pg (26-34); Mean Corpuscular Volume 101.3 fl (80-100); Mean Platelet Volume 10.4 fl (7.4-10.4); Monocytes Absolute Auto 0.5 K/mm3 (0.1-0.6); Neutrophils Absolute Auto 3.8 K/mm3 (1.3-6.7); Platelet Count Result 257 k/mm3 (150-375); Potassium 4.1 mmol/L (3.4-5.0); Red Blood Count 2.36 M/mm3 (4.2-5.4); Red Cell Distribution Width 14.2 % (11.5-14.5); Sodium 137 mmol/L (137-145); White Blood Count 7.3 K/mm3 (4.5-10.0)
[2020-09-22] MEDS: oxyCODONE HCL (*CRX) 2.5 MG TAB IR PO ×3 (06:17→21:14)
[2020-09-22] MEDS: THERAPEUTIC MULTIVITAMINS/MINERALS TAB (*BKC) 1 TABLET PO (08:50)
[2020-09-22] MEDS: DOCUSATE SODIUM LIQ 100 MG/10 ML UDC PO (08:50)
[2020-09-22] MEDS: APIXABAN 2.5 MG TABLET PO ×2 (08:50→21:14)
[2020-09-22] MEDS: polyethylene glycoL 3350 17 GM POWD.PACK PO (08:50)
[2020-09-22] MEDS: SENNA/DOCUSATE SODIUM TABLET 1 TAB PO ×2 (08:50→17:39)
[2020-09-22] MEDS: TIMOLOL MALEATE 0.25% OP SOLN 5 ML BOTTLE 1 DROP EACH EYE ×2 (08:51→21:14)
[2020-09-22] MEDS: CYANOCOBALAMIN INJ 1,000 MCG/ML VIAL 1000 MCG IM (08:56)
[2020-09-22] MEDS: METOPROLOL SUCCINATE EXT REL 25 MG TABCR PO (09:00)
--- NOTE | 2020-09-22 10:05 | PCOTNOTE ---
Attempted to see Patient at this time. Patient unavailable dur to eating breakfast. Will try back at a later time.
--- NOTE | 2020-09-22 11:45 | ECG_ITS ---
Measurements Intervals [place] Rate: 133 P: 213 MS: 170 QRS: -5 QRSD: 94 T: 10 QT: 299 QTc: 446 Interpretive Statements ECTOPIC ATRIAL TACHYCARDIA DELAYED PRECORDIAL R/S TRANSITION LOW QRS VOLTAGE IN PRECORDIAL LEADS BORDERLINE T WAVE ABNORMALITY- ANT/INF LEADS BASELINE ARTIFACT- I, II, AVR, AVL ABNORMAL ECG Electronically Signed On 09-22-2020 12:04:21 CDT by Bebeto Hogue D.O.
--- NOTE | 2020-09-22 11:54 | P.PNIM_ITS ---
Progress Note: A&P Assessment and Plan (1) Closed intertrochanteric fracture of right femur: Code(s): S72.141A - Displaced intertrochanteric fracture of right femur, initial encounter for closed fracture Status: Acute Assessment and Plan: S/p unwitnessed fall prior to arrival at her SNF facility. POD [address] Richardson. Initial labs, urine and chest x-ray showed no signs of an infection. H&H continues to drop likely from recent surgery; on Eliquis per Ortho * Post op care, pain management, PT/OT, DVT ppx per Orthopedic Surgery * Continue monitoring * Appreciate orthopedic input (2) Unwitnessed fall: Code(s): R29.6 - Repeated falls Status: Acute Assessment and Plan: The patient does not recall how she fell. No other injuries aside from the right hip fracture. * Continue fall precautions. * Continue PT/OT per ortho recommendations (3) Tachycardia: Code(s): R00.0 - Tachycardia, unspecified Status: Acute Assessment and Plan: Intermittent episodes of tachycardia; ECG today shows ectopic atrial tac hycardia. Patient is seemingly asymptomatic with reasonably stable but soft BPs. 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 * Continue home metoprolol for now * Discussed with radio communications mechanician Cardiology for consultation * Monitor for now (4) Hypertension: Code(s): I10 - Essential (primary) hypertension Status: Acute Assessment and Plan: Most recent BP 110s sys; relatively stable * Continue her home medications as prescribed * Continue monitoring. (5) Dementia: Code(s): F03.90 - Unspecified dementia without behavioral disturbance Status: Chronic Assessment and Plan: Rapidly progressive dementia over the last several months. * Continue fall precautions. (6) Glaucoma: Code(s): H40.9 - Unspecified glaucoma Status: Acute Assessment and Plan: * Continue eyedrops. (7) Congestive heart failure: Code(s): I50.9 - Heart failure, unspecified Status: Acute Assessment and Plan: Clinically compensated at this time. Most recent Echo from [facility] shows normal EF with no mention of diastolic dysfunction. * Continue metoprolol. * Monitor volume status closely with I/O and daily weights (8) Macrocytic anemia: Code(s): D53.9 - Nutritional anemia, unspecified Status: Acute Assessment and Plan: Acute on chronic, likely from blood loss from recent surgery. Found to have vitamin b12 deficiency. Could be the cause of anemia on arrival. No signs of active bleeding at this time, although H&H continues dropping with Hgb 7.5 this morning. Son agreeable to transfusions. Possible etiology behind tachycardia * Plan to recheck H&H this afternoon and tomorrow; transfuse as needed. * Continue PPI while hospitalized. * Continue Vit B12 supplementation (9) Vitamin B12
--- NOTE | 2020-09-22 11:54 | PM.IMPN ---
Progress Note: A&P Assessment and Plan (1) Closed intertrochanteric fracture of right femur: Code(s): S72.141A - Displaced intertrochanteric fracture of right femur, initial encounter for closed fracture Status: Acute Assessment and Plan: S/p unwitnessed fall prior to arrival at her SNF facility. POD [address] Richardson. Initial labs, urine and chest x-ray showed no signs of an infection. H&H continues to drop likely from recent surgery; on Eliquis per Ortho Post op care, pain management, PT/OT, DVT ppx per Orthopedic Surgery Continue monitoring Appreciate orthopedic input (2) Unwitnessed fall: Code(s): R29.6 - Repeated falls Status: Acute Assessment and Plan: The patient does not recall how she fell. No other injuries aside from the right hip fracture. Continue fall precautions. Continue PT/OT per ortho recommendations (3) Tachycardia: Code(s): R00.0 - Tachycardia, unspecified Status: Acute Assessment and Plan: Intermittent episodes of tachycardia; ECG today shows ectopic atrial tachycardia. Patient is seemingly asymptomatic with reasonably stable but soft BPs. 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 Continue home metoprolol for now Discussed with insulation blanket maker Cardiology for consultation Monitor for now (4) Hypertension: Code(s): I10 - Essential (primary) hypertension Status: Acute Assessment and Plan: Most recent BP 110s sys; relatively stable Continue her home medications as prescribed Continue monitoring. (5) Dementia: Code(s): F03.90 - Unspecified dementia without behavioral disturbance Status: Chronic Assessment and Plan: Rapidly progressive dementia over the last several months. Continue fall precautions. (6) Glaucoma: Code(s): H40.9 - Unspecified glaucoma Status: Acute Assessment and Plan: Continue eyedrops. (7) Congestive heart failure: Code(s): I50.9 - Heart failure, unspecified Status: Acute Assessment and Plan: Clinically compensated at this time. Most recent Echo from [facility] shows normal EF with no mention of diastolic dysfunction. Continue metoprolol. Monitor volume status closely with I/O and daily weights (8) Macrocytic anemia: Code(s): D53.9 - Nutritional anemia, unspecified Status: Acute Assessment and Plan: Acute on chronic, likely from blood loss from recent surgery. Found to have vitamin b12 deficiency. Could be the cause of anemia on arrival. No signs of active bleeding at this time, although H&H continues dropping with Hgb 7.5 this morning. Son agreeable to transfusions. Possible etiology behind tachycardia Plan to recheck H&H this afternoon and tomorrow; transfuse as needed. Continue PPI while hospitalized. Continue Vit B12 supplementation (9) Vitamin B12 deficiency: Code(s): E53.8 - Deficiency of other specified B group vitamins Status: Acute Assessment and Plan: IM Cyanocobalamin x 3 doses earlier in stay Continue with cyanocobalamin 1000 mg daily Follow up with PCP (10) Vitamin D deficiency: Code(s): E55.9 - Vitamin D deficiency, unspecified
[2020-09-22 13:03] LABS: Hematocrit 30.4 % (37.0-47.0); Hemoglobin 9.8 g/dL (12.0-15.0)
--- NOTE | 2020-09-22 14:12 | PM.CNCAR ---
Assessment and Plan Assessment and plan (1) Tachycardia: Code(s): R00.0 - Tachycardia, unspecified Status: Acute Assessment and Plan: Likely junctional tachycardia. At this point, I do not see clear indication for a pacemaker. She does have tachycardia currently but no documented significant bradycardia while in this hospital. It is unclear as to what happened in the nursing facility whenever she fell. Certainly arrhythmia is a possibility or bradycardia is a possibility but yet not documented. I did discuss this case with her son Sarath. At this point he thinks that she simply became unsteady on her feet and fell over. His biggest concern is that if she has recurrent episodes of falling related to arrhythmia/bradycardia that this could be prevented with a pacemaker. I am in agreement of this but he and I both understand that at this point there is no documented bradycardia or pauses that are significant enough to warrant pacemaker implantation that I am aware of. Certainly will keep her on engine monitor for now. Regarding her tachycardia at present, will give her dose of 5 mg IV metoprolol. Will consider outpatient engine monitor. No need for echocardiogram as 1 was recently performed at [facility] (2) Unwitnessed fall: Code(s): R29.6 - Repeated falls Status: Acute Assessment and Plan: Uncertain etiology (3) Hypertension: Code(s): I10 - Essential (primary) hypertension Status: Acute Assessment and Plan: At reasonable control (4) Closed intertrochanteric fracture of right femur: Code(s): S72.141A - Displaced intertrochanteric fracture of right femur, initial encounter for closed fracture Status: Acute Assessment and Plan: Status post ORIF (5) Dementia: Code(s): F03.90 - Unspecified dementia without behavioral disturbance Status: Chronic History of Present Illness History of Present Illness Consult date/time: 09/22/20 14:12 Requesting physician: Hitesh Sadler PA-C Consult reason: Other (Tachy-finesse) Reason For Visit: hip fracture Narrative: Date of service 09/22/2020 History: Patient is an 85-year-old female who has a significant history of dementia and hypertension. She came to the hospital a couple days ago from [place] after evaluation and unwitnessed fall. She had hip pain and was found that she had a intertrochanteric fracture and she is already status post ORIF. She was recently at [facility] in [facility] because of weakness, edema as well as altered mental status. It does appear to by reviewing chart records from [facility] that she was seen by Cardiology. There was some concern about arrhythmia with a heart rate in the 130s which would drop down into the 50s. From what I can find in chart record, there was reportedly a recommendation for a pacemaker but medical management was being pursued. Regarding her fall, she states that she slipped but she has would is apparent to be significant dementia and I do not know if any history is particularly reliable from her. While recovering from her surgery she has been on engine monitor and earlier today she flipped into a narrow complex tachycardia with a heart rate of 133 beats per minute. This appears to be either an atrial tachycardia or an accelerated junctional tachycardia. I did discuss the patient's care with her son Sarath who states that his impression from her fall is that she became unstable on her feet and fell over a did not actually pass out albeit unknown for sure. Regardless at this point she is completely asymptomatic. She does not know why she is here. She thinks she is visiting somebody at the hospital and does not know that she broke her femur. She denies any chest pain, shortness of breath, syncope, presyncope, paroxysmal nocturnal dyspnea, orthopnea, edema or palpitations. Review of Systems Review of Systems: All systems reviewed & are unremarkable
--- NOTE | 2020-09-22 14:43 | PC.NURSE ---
On 09/22/20, the student, [Carmencita Shepard ], provided care and completed [facility] documentation on this patient. I have reviewed the student's documentation and agree with the findings.
[2020-09-22] MEDS: METOPROLOL TARTRATE INJ 5 MG/5 ML VIAL IV PUSH (14:52)
--- NOTE | 2020-09-22 16:54 | PM.PNORT ---
Progress Note: A&P Additional Plan Patient is postop day 3. After internal fixation of right intertrochanteric hip fracture. She is very alert and conversant today. She states he is not having any pain. Her appetite is good she is eating regular food she is tearful. She seemed to reorient to the fact that she was in the hospital recovering from her hip fracture surgery. Hemoglobin is up to 9.8 today up from 7.5 yesterday. Have tried looking through the chart and there is no mention in the orders of a transfusion nor under medications but I suspect that she might have been giving blood yesterday, perhaps. Platelets are 257,000. Her dressing is dry there is no undue swelling in her hip area and no drainage on the dressing. She has no swelling in the right lower leg. Patient is doing well. Discharge planning in progress. Subjective Subjective Date/Time Seen: 09/22/20 16:54 Objective Data Vital Signs Vital Signs: Vital Signs - 24 hr 09/21/20 18:00 09/21/20 19:55 09/21/20 20:00 Temperature 36.9 C 36.6 C Pulse Rate 65 70 63 Respiratory Rate 18 16 Blood Pressure 103/46 L 95/73 L Pulse Oximetry 100 100 09/21/20 21:23 09/22/20 00:00 09/22/20 01:30 Temperature 36.6 C Pulse Rate 60 60 63 Respiratory Rate 18 Blood Pressure 124/78 Pulse Oximetry 98 09/22/20 04:00 09/22/20 06:00 09/22/20 08:00 Temperature 36.6 C Pulse Rate 60 56 L 61 Respiratory Rate 14 Blood Pressure 127/54 L Pulse Oximetry 98 09/22/20 09:00 09/22/20 10:08 09/22/20 10:23 Temperature 36.9 C Pulse Rate 61 129 H 66 Respiratory Rate 16 Blood Pressure 116/52 L Pulse Oximetry 97 09/22/20 12:00 09/22/20 14:29 09/22/20 14:52 Temperature 36.1 C L Pulse Rate 133 H 88 133 H Respiratory Rate 18 Blood Pressure 96/70 L Pulse Oximetry 99 09/22/20 16:00 09/22/20 16:36 Temperature Pulse Rate 124 H 93 Respiratory Rate Blood Pressure Pulse Oximetry Intake/Output Intake/Output: Intake & Output 04/18/21 09/20/20 09/21/20 09/22/20 23:59 23:59 23:59 23:59 Intake Total 2175 1485 830 375 Output Total 1500 1100 Balance 675 385 830 375 Meds/Results Medications: Active Medications Generic Name Dose Route Start Last Admin Trade Name Freq PRN Reason Stop Dose Admin Acetaminophen 650 mg 09/20/20 14:00 09/22/20 14:14 Acetaminophen 325 Mg Tablet PO 650 mg Q6H BRAYDON Administration Apixaban 2.5 mg 09/20/20 09:00 09/22/20 08:50 Apixaban 2.5 Mg Tablet PO 2.5 mg Q12HR BRAYDON Administration Calcium Carbonate 500 mg 09/19/20 09:00 09/22/20 08:51 Calcium/Vitamin D 500 Mg Tablet PO 500 mg DAILY BRAYDON Administration Cyanocobalamin 1,000 mcg 09/19/20 14:35 09/22/20 08:56 Cyanocobalamin Inj 1,000 Mcg/Ml Vial IM 1,000 mcg DAILY BRAYDON Administration Docusate Sodium 100 mg 09/20/20 21:00 09/22/20 08:50 Docusate Sodium Liq 100 Mg/10 Ml Udc PO 100 mg Q12HR BRAYDON Administration Ergocalciferol 50,000 unit 09/20/20 09:00 09/20/20 08:36 Ergocalciferol 50,000 Unit Capsule PO 50,000 unit WEEKLY BRAYDON Administration Magnesium Hydroxide 30 ml 09/19/20 10:41 Magnesium Hydroxide Susp 30 Ml Udc PO BID PRN Constipation Metoprolol Succinate 25 mg 09/19/20 09:00 09/22/20 09:00 Metoprolol Succinate Ext Rel 25 Mg Tabcr PO 25 mg DAILY BRAYDON Administration Multivitamins/Calcium 1 tablet 09/19/20 09:00 09/22/20 08:50 Therapeutic Multivitamins/Minerals Tab (*Bkc) PO 1 tablet DAILY BRAYDON Administration Naloxone HCl 0.1 mg 09/19/20 10:41 Naloxone Hcl 0.4 Mg/Ml Vial IV PUSH Q2M PRN Opiate Reversal Oxycodone HCl 2.5 mg 09/20/20 06:00 09/22/20 14:14 Oxycodone Hcl (*Crx) 2.5 Mg Tab Ir PO 2.5 mg Q8HR BRAYDON Administration Oxycodone/Acetaminophen 0.5 tablet 09/18/20 19:27 Oxycodone/Acetaminophen (*Crx) 5-325 Mg Tablet PO Q4H PRN Pain Rated 7-10 Polyethylene Glycol 17 gm 09/20/20 09:00 09/22/20 0
[2020-09-22] MEDS: MAGNESIUM HYDROXIDE SUSP 30 ML UDC PO (17:47)
[2020-09-23] VITALS (7 sets, daily range): BP systolic 103–116; BP diastolic 43–64; PULSE 50–66; RESP 14–16; TEMP 36.8–37.2; O2SAT 98–100
[2020-09-23] MEDS: ACETAMINOPHEN 325 MG TABLET 650 MG PO ×3 (01:39→15:26)
[2020-09-23 05:35] LABS: Hematocrit 25.4 % (37.0-47.0); Hemoglobin 8.1 g/dL (12.0-15.0); Mean Corpuscular HGB Conc 31.9 g/dl (32-36); Mean Corpuscular Hemoglobin 33.2 pg (26-34); Mean Corpuscular Volume 104.1 fl (80-100); Mean Platelet Volume 10.2 fl (7.4-10.4); Platelet Count Result 304 k/mm3 (150-375); Red Blood Count 2.44 M/mm3 (4.2-5.4); Red Cell Distribution Width 14.3 % (11.5-14.5); White Blood Count 8.3 K/mm3 (4.5-10.0)
[2020-09-23 05:53] LABS: Anion Gap 1 mmol/L (8-16); Blood Urea Nitrogen 23 mg/dL (7-17); Calcium 8.5 mg/dL (8.4-10.2); Carbon Dioxide 28 mmol/L (22-30); Chloride 108 mmol/L (98-107); Estimated CRCL calculation 43 ml/min; Estimated Glomerular Filt Rate > 60; Glucose 101 mg/dL (65-105); Magnesium 2.1 mg/dL (1.6-2.3); Sodium 137 mmol/L (137-145)
[2020-09-23] MEDS: oxyCODONE HCL (*CRX) 2.5 MG TAB IR PO (05:56)
--- NOTE | 2020-09-23 07:29 | PM.PNORT ---
Progress Note: A&P Additional Plan POD 4 hgb-8.1 this am wds-dry alert, no c/o of pain, pt is working with PT, SS still working on discharge plan Subjective Subjective Date/Time Seen: 09/23/20 07:29 Objective Data Vital Signs Vital Signs: Vital Signs - 24 hr 09/22/20 08:00 09/22/20 09:00 09/22/20 10:08 Temperature Pulse Rate 61 61 129 H Respiratory Rate Blood Pressure Pulse Oximetry 09/22/20 10:23 09/22/20 12:00 09/22/20 14:29 Temperature 36.9 C 36.1 C L Pulse Rate 66 133 H 88 Respiratory Rate 16 18 Blood Pressure 116/52 L 96/70 L Pulse Oximetry 97 99 09/22/20 14:52 09/22/20 16:00 09/22/20 16:36 Temperature Pulse Rate 133 H 124 H 93 Respiratory Rate Blood Pressure Pulse Oximetry 09/22/20 18:00 09/22/20 20:00 09/22/20 22:00 Temperature 36.6 C 36.8 C Pulse Rate 68 68 63 Respiratory Rate 16 16 Blood Pressure 97/48 L 108/46 L Pulse Oximetry 100 100 09/23/20 00:00 09/23/20 02:00 09/23/20 04:00 Temperature 36.9 C Pulse Rate 56 L 61 50 L Respiratory Rate 16 Blood Pressure 116/52 L Pulse Oximetry 99 09/23/20 06:00 Temperature 36.9 C Pulse Rate 54 L Respiratory Rate 16 Blood Pressure 113/51 L Pulse Oximetry 98 Intake/Output Intake/Output: Intake & Output 09/20/20 09/21/20 09/22/20 09/23/20 23:59 23:59 23:59 23:59 Intake Total 1485 830 615 200 Output Total 1100 Balance 385 830 615 200 Meds/Results Medications: Active Medications Generic Name Dose Route Start Last Admin Trade Name Freq PRN Reason Stop Dose Admin Acetaminophen 650 mg 09/20/20 14:00 09/23/20 01:39 Acetaminophen 325 Mg Tablet PO 650 mg Q6H BRAYDON Administration Apixaban 2.5 mg 09/20/20 09:00 09/22/20 21:14 Apixaban 2.5 Mg Tablet PO 2.5 mg Q12HR BRAYDON Administration Calcium Carbonate 500 mg 09/19/20 09:00 09/22/20 08:51 Calcium/Vitamin D 500 Mg Tablet PO 500 mg DAILY BRAYDON Administration Cyanocobalamin 1,000 mcg 09/19/20 14:35 09/22/20 08:56 Cyanocobalamin Inj 1,000 Mcg/Ml Vial IM 1,000 mcg DAILY BRAYDON Administration Ergocalciferol 50,000 unit 09/20/20 09:00 09/20/20 08:36 Ergocalciferol 50,000 Unit Capsule PO 50,000 unit WEEKLY BRAYDON Administration Magnesium Hydroxide 30 ml 09/19/20 10:41 09/22/20 17:47 Magnesium Hydroxide Susp 30 Ml Udc PO 30 ml BID PRN Administration Constipation Metoprolol Succinate 25 mg 09/19/20 09:00 09/22/20 09:00 Metoprolol Succinate Ext Rel 25 Mg Tabcr PO 25 mg DAILY BRAYDON Administration Multivitamins/Calcium 1 tablet 09/19/20 09:00 09/22/20 08:50 Therapeutic Multivitamins/Minerals Tab (*Bkc) PO 1 tablet DAILY BRAYDON Administration Naloxone HCl 0.1 mg 09/19/20 10:41 Naloxone Hcl 0.4 Mg/Ml Vial IV PUSH Q2M PRN Opiate Reversal Oxycodone HCl 2.5 mg 09/20/20 06:00 09/23/20 05:56 Oxycodone Hcl (*Crx) 2.5 Mg Tab Ir PO 2.5 mg Q8HR BRAYDON Administration Oxycodone/Acetaminophen 0.5 tablet 09/18/20 19:27 Oxycodone/Acetaminophen (*Crx) 5-325 Mg Tablet PO Q4H PRN Pain Rated 7-10 Polyethylene Glycol 17 gm 09/20/20 09:00 09/22/20 08:50 Polyethylene Glycol 3350 17 Gm Powd.Pack PO 17 gm QAM BRAYDON Administration Senna/Docusate Sodium 1 tab 09/19/20 17:00 09/22/20 17:39 Senna/Docusate Sodium Tablet PO 1 tab BID BRAYDON Administration Timolol Maleate 1 drop 09/18/20 21:45 09/22/20 21:14 Timolol Maleate 0.25% Op Soln 5 Ml Bottle EACH EYE 1 drop Q12HR BRAYDON Administration Radiology Results: ITS Impressions Head CT 09/18/20 17:44 IMPRESSION: Cerebral atherosclerosis and chronic small vessel ischemic changes of the cerebral white matter Central and cortical cerebral and cerebellar atrophy No acute intracranial finding or skull fracture Cervical Spine CT 09/18/20 17:48 IMPRESSION: Extensive degenerative changes; no fracture or dislocation Hip/Pelvis X-Ray 09/18/20 17:52 IMPRESS
[2020-09-23] MEDS: THERAPEUTIC MULTIVITAMINS/MINERALS TAB (*BKC) 1 TABLET PO (09:17)
[2020-09-23] MEDS: SENNA/DOCUSATE SODIUM TABLET 1 TAB PO (09:18)
[2020-09-23] MEDS: TIMOLOL MALEATE 0.25% OP SOLN 5 ML BOTTLE 1 DROP EACH EYE (09:18)
[2020-09-23] MEDS: APIXABAN 2.5 MG TABLET PO (09:18)
[2020-09-23] MEDS: polyethylene glycoL 3350 17 GM POWD.PACK PO (09:18)
[2020-09-23] MEDS: CYANOCOBALAMIN INJ 1,000 MCG/ML VIAL 1000 MCG IM (09:36)
[2020-09-23] MEDS: METOPROLOL SUCCINATE EXT REL 25 MG TABCR PO (10:22)
--- NOTE | 2020-09-23 10:43 | PM.PNCARD ---
Progress Note: A&P Assessment and Plan (1) Tachycardia: Code(s): R00.0 - Tachycardia, unspecified Status: Acute Assessment and Plan: Likely junctional tachycardia. At this point, I do not see clear indication for a pacemaker. She does have tachycardia currently but no documented significant bradycardia while in this hospital. It is unclear as to what happened in the nursing facility whenever she fell. Certainly arrhythmia is a possibility or bradycardia is a possibility but yet not documented. I did discuss this case with her son Sarath yesterday. At this point he thinks that she simply became unsteady on her feet and fell over. His biggest concern is that if she has recurrent episodes of falling related to arrhythmia/bradycardia that this could be prevented with a pacemaker. I am in agreement of this but he and I both understand that at this point there is no documented bradycardia or pauses that are significant enough to warrant pacemaker implantation that I am aware of. At this point, no changes from the plan described and outlined yesterday. She does have bursts of tachycardia but is asymptomatic. No clear indication for pacemaker at this point. Will remain on telemetry until she is discharged then her son is a residual plan was to have her see his transaction coordinator out [facility] Dr. Marquez. DC planning (2) Unwitnessed fall: Code(s): R29.6 - Repeated falls Status: Acute Assessment and Plan: Uncertain etiology (3) Hypertension: Code(s): I10 - Essential (primary) hypertension Status: Acute Assessment and Plan: At reasonable control (4) Closed intertrochanteric fracture of right femur: Code(s): S72.141A - Displaced intertrochanteric fracture of right femur, initial encounter for closed fracture Status: Acute Assessment and Plan: Status post ORIF (5) Dementia: Code(s): F03.90 - Unspecified dementia without behavioral disturbance Status: Chronic Subjective Date/time seen: 09/23/20 10:43 Interval history: Patient is a pleasantly demented 85 yo F with history of HTN, CHF (recent echo at 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 Richardson. Patient is A&O to self and , but otherwise pleasantly confused. She does answer some ROS, but is a poor historian given her dementia. Upon questioning, she denies f/c/s, dizziness, lightheadedness, cp/palpitations, sob, n/v, abd pain, right hip pain. She has sensation in her right LE distal to surgical site. No other complaints at this time. Nursing reports patient tachycardic in the 130s this morning; seemingly asymptomatic this morning upon questioning. Date of service 09/23/2020: She continues have bursts of junctional tachycardia. She has no significant bradycardia or conversion pauses. She tolerates the tachycardia well and is completely asymptomatic. She still does not know where she is or why she is here but is reminded. She denies any chest pain or shortness of breath Review of Systems Review of Systems: All systems reviewed & are unremarkable except as noted in HPI and below Constitutional: Constitutional: Denies excessive sweating, Denies headache(s) and Reports weakness Eyes: Eyes: Denies blurry vision ENT: Reports Normal hearing present, Denies headache(s) and Denies neck pain Cardiovascular: Cardiovascular: Denies chest pain and Denies dyspnea Respiratory: Respiratory: Denies dyspnea Gastrointestinal: Gastrointestinal: Denies abdominal pain Genitourinary: Genitourinary: Denies hematuria and Denies flank pain Musculoskeletal: Musculoskeletal: Denies neck pain Integumentary/Breasts: Skin/Breast: Denies dry skin Neurologic: Reports Normal hearing present, Denies headache(s) and Reports weakness Psychiatric: Psychiat
--- NOTE | 2020-09-23 10:45 | PM.DS ---
DS: Admitting Diagnosis Admitting Diagnosis Admitting Diagnosis: Closed intertrochanteric fracture of right femur DS: Discharge Diagnosis Discharge Diagnosis (1) Closed intertrochanteric fracture of right femur: Code(s): S72.141A - Displaced intertrochanteric fracture of right femur, initial encounter for closed fracture Status: Acute Assessment and Plan: S/p unwitnessed fall prior to arrival at her SNF facility. POD [address] Richardson. Initial labs, urine and chest x-ray showed no signs of an infection. H&H is stable. Post op care, pain management, PT/OT, DVT ppx per Orthopedic Surgery Appreciate orthopedic input D/c today Monitor H&H next week F/u with PCP (2) Unwitnessed fall: Code(s): R29.6 - Repeated falls Status: Acute Assessment and Plan: The patient does not recall how she fell. Unclear etiology; most likely mechanical fall although other etiologies include arrhythmia but no clear indication for further intervention during stay; other etiologies include hypotension (orthostasis?), although again, no clear evidence this is the case. No other injuries aside from the right hip fracture. Continue fall precautions. Continue PT/OT per ortho recommendations (3) Tachycardia: Code(s): R00.0 - Tachycardia, unspecified Status: Acute Assessment and Plan: Intermittent episodes of tachycardia with variable durations appearing to start and resolve spontaneously; ECG read as ectopic atrial tachycardia,although appears junctional rhythm. Patient is seemingly asymptomatic with reasonably stable but soft BPs. 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 Cardiology consulted and appreciate input; rec continuing current management as there is no clear indication for pacemaker and rec following up with [employer] that sonSarath, plans to establish patient with. Continue home metoprolol F/u with [facility] once established May need outpatient monitor in future if syncopal episodes continue (4) Hypertension: Code(s): I10 - Essential (primary) hypertension Status: Acute Assessment and Plan: Most recent BP 100-110s sys; relatively stable Continue her home medications as prescribed F/u with Cardiology as above (5) Dementia: Code(s): F03.90 - Unspecified dementia without behavioral disturbance Status: Chronic Assessment and Plan: Rapidly progressive dementia over the last several months. Fall precautions (6) Glaucoma: Code(s): H40.9 - Unspecified glaucoma Status: Acute Assessment and Plan: Continue eyedrops. (7) Congestive heart failure: Code(s): I50.9 - Heart failure, unspecified Status: Acute Assessment and Plan: Clinically compensated at this time. Most recent Echo from [facility] shows normal EF with no mention of diastolic dysfunction. Continue metoprolol. Monitored volume status closely with I/O and daily weights (8) Macrocytic anemia: Code(s): D53.9 - Nutritional anemia, unspecified Status: Acute Assessment and Plan: Acute on chronic, likely from blood loss from recent surgery. Found to have vitamin b12 deficiency; likely underlying cause of chronic anemia. No signs of active bleeding at this time, with stable H&H overall. No tr
== END 2020-09-23 15:53 | DRG 481 ==
LOC: ANHED 19:26 → ANH2MED 22:09
PROVIDERS: Emergency Medicine Emergency Medical Services; Orthopaedic Surgery; Physician Assistant; Physician Assistant Surgical; Admitting Provider Internal Medicine; Emergency Provider Emergency Medicine; PCP Family Medicine; Visit Provider Physician Assistant
PROC: 0QS634Z Reposition Right Upper Femur with Internal Fixation Device, Percutaneous Approach (ICD-10-PCS; CPT 27245; principal; 2020-09-19 07:30)
DX: S72.141A Displaced intertrochanteric fracture of right femur, initial encounter for closed fracture (principal); D62 Acute posthemorrhagic anemia; W19.XXXA Unspecified fall, initial encounter; R29.6 Repeated falls; R00.0 Tachycardia, unspecified; F03.90 Unspecified dementia, unspecified severity, without behavioral disturbance, psychotic disturbance, mood disturbance, and anxiety; H40.9 Unspecified glaucoma; I50.9 Heart failure, unspecified; I11.0 Hypertensive heart disease with heart failure; D51.9 Vitamin B12 deficiency anemia, unspecified; E55.9 Vitamin D deficiency, unspecified; Z66 Do not resuscitate; Z85.3 Personal history of malignant neoplasm of breast
CPT/HCPCS: 36415; 51702; 70450; 71045; 72125; 73502; 80048; 80053; 81001; 82306; 82607; 82746; 83735; 84443; 85014; 85018; 85025; 85027; 85055; 85610; 85730; 86850; 86900; 86901; 93005; 96374; 96375; 97110; 97116; 97161; 97166; 97530; 97535; 99285; A9270; C1713; J0131; J0690; J1100; J2270; J2405; J2704; J3010; J3370; J3420; J3480; J7030; J7040; J7120